=== PATIENT | male | born 1940 | race Caucasian/White ===

== ENCOUNTER 2018-01-09 19:21 | Emergency (ER) | payer OTHER ==
[~2018-01-09] VITALS: Ht 175.3 cm; Wt 81.0 kg
[~2018-01-09 19:21] MED LIST: ALEV220T14 PO; ALPH0.1S EACH EYE; AMLO10TA2 PO; ASPI81TA23 PO; HYDR12.57 PO; LIPI20TA PO; LISI40TA PO; OMEP20TA93 PO; TIMO0.5S30 EACH EYE
[2018-01-09 19:42] VITALS: BP 146/77; PULSE 79; RESP 16; TEMP 98.5; O2SAT 95
[2018-01-09] MEDS ORDERED: SODIUM CHLORIDE 0.9% FLUSH 10 ML FLUSH IVF PRN (20:30)
--- NOTE | 2018-01-09 20:31 | PD ---
HPI Chief Complaint: Syncope/Near-Syncope Time Seen by Provider: 20:29 Travel History International Travel<30 days: No Contact w/Intl Traveler<30days: No Traveled to known affect area: No History of Present Illness HPI 77-year-old male with history of CAD, hypertension, presents emergency department for evaluation of a syncopal episode. Patient had an unwitnessed syncopal episode 2 days ago. He does not believe he hit his head but he does not know. He has no obvious head trauma. He went to his primary care providers yesterday who did an EKG and a minimal workup and advised that he had a "heart block" the says. Patient denies any chest pain or tightness. He states since the incident he has felt lightheaded and like he was going to pass out again, however he has not. The episodes became more frequent today. Denies any chest pain or shortness of breath. No other focal deficits or weakness. Patient has no other symptoms to report. Patient did recently stop taking his aspirin due to upcoming biopsy scheduled for pulmonary nodule. [facility] Past Medical History Cardiovascular Problems: Yes (HTN, heart block,) High Cholesterol: Yes Diminished Hearing: No Hypertension: Yes Past Surgical History Surgical History: No Previous Surgery Social History Alcohol Use: Yes (DAILY BEER, MORE ON WEEK END) Tobacco Use: No Substance Use: No Allergies-Medications (Allergen,Severity, Reaction): Coded Allergies: penicillin G (Verified Allergy, Severe, THROAT CLOSES, 09/15/17) Reported Meds & Prescriptions Reported Meds & Active Scripts Active Alphagan P Opth Drops (Brimonidine Tartrate) 0.1% Soln 1 Drop EACH EYE BID Reported Timolol Opth Drops 0.5 % Soln 1 Drop EACH EYE BID Aleve Arthritis (Naproxen Sodium) 220 Mg Tab 220 Mg PO BID Aspirin EC (Aspirin) 81 Mg Tabdr 81 Mg PO TWICE A WEEK Omeprazole 20 Mg Tab 20 Mg PO BID Hydrochlorothiazide 12.5 Mg Cap 12.5 Mg PO DAILY Lipitor (Atorvastatin Calcium) 20 Mg Tab 20 Mg PO HS Lisinopril 40 Mg Tab 40 Mg PO DAILY Amlodipine (Amlodipine Besylate) Unknown Strength Tab Unknown Dose PO DAILY Review of Systems Except as stated in HPI: all other systems reviewed are Neg Physical Exam Narrative GENERAL: Well-nourished male patient in no acute distress SKIN: Focused skin assessment warm/dry. HEAD: Atraumatic. Normocephalic. EYES: Pupils equal and round. No scleral icterus. No injection or drainage. ENT: No nasal bleeding or discharge. Mucous membranes pink and moist. NECK: Trachea midline. No JVD. CARDIOVASCULAR: Regular rate and rhythm. No murmur appreciated. RESPIRATORY: No accessory muscle use. Clear to auscultation. Breath sounds equal bilaterally. GASTROINTESTINAL: Abdomen soft, non-tender, nondistended. Hepatic and splenic margins not palpable. MUSCULOSKELETAL: No obvious deformities. No clubbing. No cyanosis. No edema. NEUROLOGICAL: Awake and alert. No obvious cranial nerve deficits. Motor grossly within normal limits. Normal speech. PSYCHIATRIC: Appropriate mood and affect; insight and judgment normal. Data Data Last Documented VS Vital Signs Date Time Temp Pulse Resp B/P (MAP) Pulse Ox O2 Delivery O2 Flow Rate FiO2 01/09/18 19:42 98.5 79 16 146/77 (100) 95 Orders Orders Electrocardiogram (01/09/18 20:30) Complete Blood Count With Diff (01/09/18 20:30) Comprehensive Metabolic Panel (01/09/18 20:30) Magnesium (Mg) (01/09/18 20:30) Ckmb (Isoenzyme) Profile (01/09/18 20:30) Troponin I (01/09/18 20:30) Act Partial Throm Time (Ptt) (01/09/18 20:30) Prothrombin Time / Inr (Pt) (01/09/18 20:30) Urinalysis - C+S If Indicated (01/09/18 20:30) Chest, Single Ap (01/09/18 20:30) Ct Brain W/O Iv Contrast(Rout) (01/09/18 20:30) Ecg Monitoring (01/09/18 20:30) Iv Access Insert/Monitor (01/09/18 20:30) Oximetry (01/09/18 20:30) Sodium Chloride 0.9% Flush (Ns Flush) (01/09/18 20:30) Labs Laboratory Tests Test 01/09/18 20:40 01/09/18 20:52 01/09/18 21:15 White Blood Count 9.4 TH/MM3 Red Blood Count 4.35 MIL/MM3 Hemoglobin 12.6 GM/DL Hematocrit 37.2 % Mean Corpuscular Volume 85.5 FL Mean Corpuscular Hemoglobin 29.0 PG Mean Corpuscular Hemoglobin Concent 33.9 % Red Cell Distribution Width 14.4 % Platelet Count 265 TH/MM3 Mean Platelet Volume 9.9 FL Neutrophils (%) (Auto) 63.6 % Lymphocytes (%) (Auto) 19.1 % Monocytes (%) (Auto) 11.8 % Eosinophils (%) (Auto) 4.3 % Basophils (%) (Auto) 1.2 % Neutrophils # (Auto) 6.0 TH/MM3 Lymphocytes # (Auto) 1.8 TH/MM3 Monocytes # (Auto) 1.1 TH/MM3 Eosinophils # (Auto) 0.4 TH/MM3 Basophils # (Auto) 0.1 TH/MM3 CBC Comment DIFF FINAL Differential Comment Blood Urea Nitrogen 20 MG/DL Creatinine 1.16 MG/DL Random Glucose 120 MG/DL Total Protein 7.5 GM/DL Albumin 3.7 GM/DL Calcium Level 8.9 MG/DL Magnesium Level 2.3 MG/DL Alkaline Phosphatase 57 U/L Aspartate Amino Transf (AST/SGOT) 22 U/L Alanine Aminotransferase (ALT/SGPT) 22 U/L Total Bilirubin 0.4 MG/DL Sodium Level 140 MEQ/L Potassium Level 3.8 MEQ/L Chloride Level 106 MEQ/L Carbon Dioxide Level 26.6 MEQ/L Anion Gap 7 MEQ/L Estimat Glomerular Filtration Rate 61 ML/MIN Total Creatine Kinase 91 U/L Troponin I LESS THAN 0.02 NG/ML Urine Color LIGHT-YELLOW Urine Turbidity CLEAR Urine pH 5.5 Urine Specific [place] 1.021 Urine Protein NEG mg/dL Urine Glucose (UA) NEG mg/dL Urine Ketones NEG mg/dL Urine Occult Blood NEG Urine Nitrite NEG Urine Bilirubin NEG Urine Urobilinogen LESS THAN 2.0 MG/DL Urine Leukocyte Esterase NEG Urine RBC LESS THAN 1 /hpf Urine Squamous Epithelial Cells <1 /hpf Microscopic Urinalysis Comment CULT NOT INDICATED Prothrombin Time 11.1 SEC Prothromb Time International Ratio 1.1 RATIO Activated Partial Thromboplast Time 24.7 SEC [facility] Medical Decision Making Medical Screen Exam Complete: Yes Emergency Medical Condition: Yes Medical Record Reviewed: Yes Differential Diagnosis Syncope versus near syncope versus arrhythmia versus electrolyte abnormality versus intracranial hemorrhage Narrative Course 77-year-old male presents emergency department for evaluation following a syncopal episode and multiple near syncopal episodes. Patient appears without distress. Vital signs are stable. He has no focal deficits weakness. Workup is initiated. Patient is signed out to my attending physician Dr. Ruiz who will disposition him appropriately. Condition: Stable MelonyJazz MARES January 09, 2018 20:31
[2018-01-09 20:57] LABS: BASOPHIL # 0.1 TH/MM3 (0-0.2); BASOPHIL % 1.2 % (0.0-2.0); EOSINOPHIL # 0.4 TH/MM3 (0-0.4); EOSINOPHIL % 4.3 % (0.0-4.0); HEMATOCRIT 37.2 % (39.0-51.0); HEMOGLOBIN 12.6 GM/DL (13.0-17.0); LYMPH % 19.1 % (9.0-44.0); LYMPHOCYTE # 1.8 TH/MM3 (1.0-4.8); MEAN CELL VOLUME 85.5 FL (80.0-100.0); MEAN CORPUSCULAR HGB CONC 33.9 % (32.0-36.0); MEAN PLATELET VOLUME 9.9 FL (7.0-11.0); MONO % 11.8 % (0.0-8.0); MONOCYTE # 1.1 TH/MM3 (0-0.9); NEUT % 63.6 % (16.0-70.0); PLATELET COUNT 265 TH/MM3 (150-450); RED BLOOD COUNT 4.35 MIL/MM3 (4.50-5.90); RED CELL DISTRIBUTION WIDTH 14.4 % (11.6-17.2); WHITE BLOOD COUNT 9.4 TH/MM3 (4.0-11.0)
[2018-01-09 21:12] LABS: ALT (GPT) 22 U/L (12-78)
[2018-01-09 21:13] LABS: ALBUMIN 3.7 GM/DL (3.4-5.0); AST (GOT) 22 U/L (15-37); BICARBONATE 26.6 MEQ/L (21.0-32.0); BLOOD UREA NITROGEN 20 MG/DL (7-18); CALCIUM 8.9 MG/DL (8.5-10.1); CHLORIDE 106 MEQ/L (98-107); CREATININE 1.16 MG/DL (0.60-1.30); GLOMERULAR FILTRATION RATE 61 ML/MIN (>89); GLUCOSE,RANDOM 120 MG/DL (74-106); MAGNESIUM 2.3 MG/DL (1.5-2.5); SODIUM (NA) 140 MEQ/L (136-145)
[2018-01-09 21:15] LABS: BILIRUBIN, URINE NEG (NEG); BLOOD, URINE NEG (NEG); GLUCOSE,URINE NEG (NEG); KETONE, URINE NEG (NEG); NITRITE,URINE NEG (NEG); PH, URINE 5.5 (5.0-8.5); SQUAMOUS EPITHELIAL CELL URINE <1 /hpf (0-5); URINE COLOR LIGHT-YELLOW (YELLW/STRAW); URINE LEUKOCYTE ESTERASE NEG (NEG)
[2018-01-09 21:16] LABS: ALKALINE PHOSPHATASE 57 U/L (45-117); TOTAL BILIRUBIN ADULT 0.4 MG/DL (0.2-1.0); TOTAL PROTEIN 7.5 GM/DL (6.4-8.2); TROPONIN I LESS THAN 0.02 NG/ML (0.02-0.05)
--- NOTE | 2018-01-09 21:44 | RADRPT ---
EXAM DATE/TIME: 01/09/2018 21:20 [facility] COMPARISON: No previous studies available for comparison. INDICATIONS : Palpitations. Dizziness with frequent falls. MEDICAL HISTORY : Hypercholesterolemia. Hypertension SURGICAL HISTORY : None. ENCOUNTER: Initial ACUITY: 3 days PAIN SCORE: 0/10 LOCATION: Bilateral chest FINDINGS: Tiny granuloma is noted within the right upper lung field. The heart is normal. The pulmonary vascula r pattern is normal. Linear density is noted within the left upper lung field consistent with possibl e atelectasis or scarring. No focal infiltrate is noted. CONCLUSION: Linear density within the left upper lung field consistent with possible atelectasis or scarring. Tin y granuloma within the right upper lung field. Gael Baker MD on January 09, 2018 at 21:40 Board Certified Radiologist. This report was verified electronically.
[2018-01-09 21:57] LABS: INTERNATIONAL NORMALIZED RATIO 1.1 RATIO; PROTHROMBIN TIME - PATIENT 11.1 SEC (9.8-11.6)
--- NOTE | 2018-01-09 23:46 | RADRPT ---
EXAM DATE/TIME: 01/09/2018 22:56 [facility] COMPARISON: No previous studies available for comparison. INDICATIONS : Trauma; fall. Patient complains of chronic dizziness. RADIATION DOSE: 56.35 CTDIvol (mGy) MEDICAL HISTORY : Hypertension. Hypercholesterolemia. Daily ETOH SURGICAL HISTORY : None. ENCOUNTER: Initial ACUITY: 1 day PAIN SCALE: 0/10 LOCATION: cranial TECHNIQUE: Multiple contiguous axial images were obtained of the head. Using automated exposure control and adj ustment of the mA and/or kV according to patient size, radiation dose was kept as low as reasonably a chievable to obtain optimal diagnostic quality images. DICOM format image data is available electro nically for review and comparison. FINDINGS: There is encephalomalacia in the high convexity right parietal region. A small focus of cortical ence phalomalacia is present in the mid convexity right parieto-occipital region. There is no evidence of mass or hemorrhage. There is nothing to suggest acute infarction. Ventricles are symmetric and normal . The calvarium is intact. CONCLUSION: Old right hemispheric strokes. No acute injury Reddy Pena MD on January 09, 2018 at 23:42 Board Certified Radiologist. This report was verified electronically.
--- NOTE | 2018-01-10 00:17 | PD ---
Physical Exam Narrative Patient was seen by me and my wellness assistant. Data Data Last Documented VS Vital Signs Date Time Temp Pulse Resp B/P (MAP) Pulse Ox O2 Delivery O2 Flow Rate FiO2 01/09/18 19:42 98.5 79 16 146/77 (100) 95 Orders Orders Electrocardiogram (01/09/18 20:30) Complete Blood Count With Diff (01/09/18 20:30) Comprehensive Metabolic Panel (01/09/18 20:30) Magnesium (Mg) (01/09/18 20:30) Ckmb (Isoenzyme) Profile (01/09/18 20:30) Troponin I (01/09/18 20:30) Act Partial Throm Time (Ptt) (01/09/18 20:30) Prothrombin Time / Inr (Pt) (01/09/18 20:30) Urinalysis - C+S If Indicated (01/09/18 20:30) Chest, Single Ap (01/09/18 20:30) Ct Brain W/O Iv Contrast(Rout) (01/09/18 20:30) Ecg Monitoring (01/09/18 20:30) Iv Access Insert/Monitor (01/09/18 20:30) Oximetry (01/09/18 20:30) Sodium Chloride 0.9% Flush (Ns Flush) (01/09/18 20:30) Labs Laboratory Tests Test 01/09/18 20:40 01/09/18 20:52 01/09/18 21:15 White Blood Count 9.4 TH/MM3 Red Blood Count 4.35 MIL/MM3 Hemoglobin 12.6 GM/DL Hematocrit 37.2 % Mean Corpuscular Volume 85.5 FL Mean Corpuscular Hemoglobin 29.0 PG Mean Corpuscular Hemoglobin Concent 33.9 % Red Cell Distribution Width 14.4 % Platelet Count 265 TH/MM3 Mean Platelet Volume 9.9 FL Neutrophils (%) (Auto) 63.6 % Lymphocytes (%) (Auto) 19.1 % Monocytes (%) (Auto) 11.8 % Eosinophils (%) (Auto) 4.3 % Basophils (%) (Auto) 1.2 % Neutrophils # (Auto) 6.0 TH/MM3 Lymphocytes # (Auto) 1.8 TH/MM3 Monocytes # (Auto) 1.1 TH/MM3 Eosinophils # (Auto) 0.4 TH/MM3 Basophils # (Auto) 0.1 TH/MM3 CBC Comment DIFF FINAL Differential Comment Blood Urea Nitrogen 20 MG/DL Creatinine 1.16 MG/DL Random Glucose 120 MG/DL Total Protein 7.5 GM/DL Albumin 3.7 GM/DL Calcium Level 8.9 MG/DL Magnesium Level 2.3 MG/DL Alkaline Phosphatase 57 U/L Aspartate Amino Transf (AST/SGOT) 22 U/L Alanine Aminotransferase (ALT/SGPT) 22 U/L Total Bilirubin 0.4 MG/DL Sodium Level 140 MEQ/L Potassium Level 3.8 MEQ/L Chloride Level 106 MEQ/L Carbon Dioxide Level 26.6 MEQ/L Anion Gap 7 MEQ/L Estimat Glomerular Filtration Rate 61 ML/MIN Total Creatine Kinase 91 U/L Troponin I LESS THAN 0.02 NG/ML Urine Color LIGHT-YELLOW Urine Turbidity CLEAR Urine pH 5.5 Urine Specific [place] 1.021 Urine Protein NEG mg/dL Urine Glucose (UA) NEG mg/dL Urine Ketones NEG mg/dL Urine Occult Blood NEG Urine Nitrite NEG Urine Bilirubin NEG Urine Urobilinogen LESS THAN 2.0 MG/DL Urine Leukocyte Esterase NEG Urine RBC LESS THAN 1 /hpf Urine Squamous Epithelial Cells <1 /hpf Microscopic Urinalysis Comment CULT NOT INDICATED Prothrombin Time 11.1 SEC Prothromb Time International Ratio 1.1 RATIO Activated Partial Thromboplast Time 24.7 SEC [facility] Medical Record Reviewed: Yes Supervised Visit with KARINA: Yes Interpretation(s) Last Impressions Chest X-Ray 01/09/182029 Signed Impressions: Service Date/Time: Tuesday, January 09, 2018 21:20 - CONCLUSION: Linear density within the left upper lung field consistent with possible atelectasis or scarring. Tiny granuloma within the right upper lung field. Gael Baker MD 12:[address] scan of brain showed no acute process. Old CVA. CBC within normal limits. CMP within normal limits. BUN 20. GFR 61. Cardiac enzymes are normal. UA is negative. Diagnosis Primary Impression: Dizziness Patient Instructions: General Instructions Additional Instruction: Follow-up with personal physician. Return if worse. Med/Other Pt SpecificInfo: No Change to Meds Disposition: 01 DISCHARGE HOME Condition: Stable Eligio Ruiz MD January 10, 2018 00:17
--- NOTE | 2018-01-10 12:09 | EKG ---
Date Performed: 01/09/2018 Time Performed: 20:43:40 PTAGE: 77 years EKG: Sinus rhythm WITH FIRST DEGREE AV BLOCK WITH OCCASIONAL VENTRICULAR PREMATURE COMPLEXES INCOMPLETE RIGHT BUNDLE B RANCH BLOCK ABNORMAL ECG NO PREVIOUS TRACING DOCTOR: Adrian Munson Interpretating Date/Time 01/10/2018 12:07:20
== END 2018-01-10 00:40 | disposition home or self-care (01) ==
LOC: NEPE 19:21
DX: R42 Dizziness and giddiness (principal); I44.0 Atrioventricular block, first degree; I45.10 Unspecified right bundle-branch block; R94.31 Abnormal electrocardiogram [ECG] [EKG]; I25.10 Atherosclerotic heart disease of native coronary artery without angina pectoris; I10 Essential (primary) hypertension; E78.00 Pure hypercholesterolemia, unspecified; Z79.899 Other long term (current) drug therapy; Z86.73 Personal history of transient ischemic attack (TIA), and cerebral infarction without residual deficits
CPT/HCPCS: 70450; 71045; 80053; 81001; 82550; 83735; 84484; 85025; 85610; 85730; 93005; 99285

== ENCOUNTER → 2018-02-22 | Outpatient (CLI) | payer OTHER ==
[~2018-02-22] MED LIST changes: +BACL10TA PO; +HYDR25TA5 PO; +MECL-62 PO; +OCUVTAB4 PO; +VITA1000 PO
[2018-02-22 11:09] LABS: AUTOMATED NEUTROPHIL # 7.1 TH/MM3 (1.8-7.7); BASOPHIL # 0.1 TH/MM3 (0-0.2); BASOPHIL % 0.7 % (0.0-2.0); EOSINOPHIL # 0.4 TH/MM3 (0-0.4); EOSINOPHIL % 3.5 % (0.0-4.0); HEMATOCRIT 36.3 % (39.0-51.0); HEMOGLOBIN 12.3 GM/DL (13.0-17.0); LYMPH % 15.4 % (9.0-44.0); LYMPHOCYTE # 1.5 TH/MM3 (1.0-4.8); MEAN CELL VOLUME 84.7 FL (80.0-100.0); MEAN CORPUSCULAR HEMOGLOBIN 28.7 PG (27.0-34.0); MEAN CORPUSCULAR HGB CONC 33.9 % (32.0-36.0); MONO % 10.2 % (0.0-8.0); NEUT % 70.2 % (16.0-70.0); PLATELET COUNT 281 TH/MM3 (150-450); RED BLOOD COUNT 4.29 MIL/MM3 (4.50-5.90); RED CELL DISTRIBUTION WIDTH 13.8 % (11.6-17.2); WHITE BLOOD COUNT 10.1 TH/MM3 (4.0-11.0)
[2018-02-22 11:14] LABS: BILIRUBIN, URINE NEG (NEG); BLOOD, URINE NEG (NEG); GLUCOSE,URINE NEG (NEG); KETONE, URINE NEG (NEG); MUCUS URINE FEW /lpf (OCC); NITRITE,URINE NEG (NEG); URINE COLOR YELLOW (YELLW/STRAW); URINE LEUKOCYTE ESTERASE NEG (NEG)
[2018-02-22 11:19] LABS: INTERNATIONAL NORMALIZED RATIO 1.1 RATIO; PROTHROMBIN TIME - PATIENT 10.9 SEC (9.8-11.6)
[2018-02-22 11:31] LABS: BICARBONATE 28.2 MEQ/L (21.0-32.0); CALCIUM 8.6 MG/DL (8.5-10.1); CREATININE 1.06 MG/DL (0.60-1.30)
--- NOTE | 2018-02-22 12:00 | RADRPT ---
EXAM DATE: 02/22/2018 11:54 AM EDT AGE/SEX: 77 years / Male INDICATIONS: Evaluate for pneumothorax, pneumonia, and communicable disease. Pre op for thoracotomy. CLINICAL DATA: This is the patient's initial encounter. Patient reports that signs and symptoms have been present for 1 day and indicates a pain score of 0/10. MEDICAL/SURGICAL HISTORY: Hypertension. None. COMPARISON: [facility] [place], [place]/09/[place]. . FINDINGS: The heart size is normal. There appear to be calcific granulomas in the lateral right upper lung. Sabino cified lymph nodes are seen in the right hilar region. There is a nonspecific small linear densities seen in the lateral left upper lung. This is unchanged from the prior chest x-ray. No new area of con solidation is seen. The costophrenic angles are clear. CONCLUSION: The chest x-ray with of intracranial is exposure on the right side and a focal density in the lateral left upper lung. This is unchanged when compared to the prior chest x-ray. Patient has had a CT exam ination performed on 12/31/2017. Electronically signed by: Reddy Borges MD 02/22/2018 11:59 AM EDT
--- NOTE | 2018-02-22 22:52 | EKG ---
Date Performed: 02/22/2018 Time Performed: 10:59:31 PTAGE: 77 years EKG: Sinus rhythm WITH FIRST DEGREE AV BLOCK INCOMPLETE RIGHT BUNDLE BRANCH BLOCK ABNORMAL ECG NO PREVIOUS TRACING DOCTOR: Rudi Galan Interpretating Date/Time 02/22/2018 22:50:36
== END ==
LOC: CPRE 10:19
PROVIDERS: ATTEND Thoracic Surgery (Cardiothoracic Vascular Surgery)
DX: Z01.810 Encounter for preprocedural cardiovascular examination (principal); Z01.811 Encounter for preprocedural respiratory examination; Z01.812 Encounter for preprocedural laboratory examination; C34.12 Malignant neoplasm of upper lobe, left bronchus or lung; R94.31 Abnormal electrocardiogram [ECG] [EKG]
CPT/HCPCS: 36415; 71046; 80048; 81001; 85025; 85610; 85730; 93005

== ENCOUNTER 2018-02-25 05:49 | Inpatient (IN) ==
[2018-03-07] MEDS ORDERED: niCARdipine Inj 25 MG in Sodium Chlor 0.9% Inj 240 ML IV.CONT PRN ×2
[2018-03-07] MEDS ORDERED: Magnesium Sulfate Inj 2 GM in Sodium Chlor 0.9% Inj 96 ML IV.SIG PRN ×2
[2018-03-07] MEDS ORDERED: Potassium Chlor 40 mEq Premix 40 MEQ/100 ML PIGGYBACK IV.SIG PRN ×2
[2018-03-07] MEDS ORDERED: Magnesium Oxide 400 MG Tablet PO PRN
[2018-03-07] MEDS ORDERED: Sodium Phosphate Inj 30 MMOL in Sodium Chlor 0.9% Inj 250 ML IV.SIG PRN ×2
[2018-03-07] MEDS ORDERED: Potassium Phosphate 500 MG Soluble Tablet PO PRN ×2
[2018-03-07] MEDS ORDERED: Potassium Chlor 20 mEq Premix 20 MEQ/100 ML PIGGYBACK IV.SIG PRN ×2
[2018-03-07] MEDS ORDERED: Potassium Phosphate Inj 30 MMOL in Sodium Chlor 0.9% Inj 250 ML IV.SIG PRN ×2
[2018-03-07] MEDS ORDERED: Bisacodyl 10 MG Supp RECTAL PRN
[2018-03-07] MEDS ORDERED: Potassium Chloride 25 MEQ Effervescent Tablet PO PRN
[2018-03-07] MEDS ORDERED: Labetalol HCl Inj 100 MG/20 ML Vial IV.PUSH PRN ×2
[2018-03-07] MEDS ORDERED: Dextrose 50% in Water 50 ML Vial IV.PUSH PRN
[2018-03-07] MEDS ORDERED: Magnesium Sulfate Inj 4 GM in Sodium Chlor 0.9% Inj 92 ML IV.SIG PRN ×2
[2018-03-07] MEDS: Oral Hygiene Kit OROPHARYNG SCH ×4 (02:00→15:44)
[2018-03-07] MEDS: Chlorhexidine 0.12% Oral Kit 15 ML UDC SWISH-SPIT SCH ×2 (08:19→20:53)
[2018-03-07] MEDS: BRIMONIDINE 0.1% EACH EYE SCH ×2 (08:20→20:54)
[2018-03-07] MEDS: OPTH EACH EYE SCH ×2 (08:20→20:54)
[2018-03-07] MEDS: Artificial Tears Opth Oint 3.5 GM Tube EACH EYE SCH ×2 (08:20→20:52)
[2018-03-07] MEDS: Polyethylene Glycol 3350 17 GM Packet NG/OG SCH ×2 (08:20→20:52)
[2018-03-07] MEDS: Docusate Sodium Liq 100 MG/10 ML UDC PO SCH ×2 (08:20→20:50)
[2018-03-07] MEDS: Sennosides Liq 8.8 MG/5 ML UDC PO SCH ×2 (08:21→20:51)
[2018-03-07] MEDS: Timolol 0.5% Drops 5 ML Bottle EACH EYE SCH ×2 (08:21→20:54)
[2018-03-07] MEDS ORDERED: Senna/Docusate Sodium 8.6/50 MG Tablet PO SCH (09:00)
[2018-03-07] MEDS: Heparin Drip 25,000 UNIT/250 ML BAG IV.CONT PRN (09:46)
--- NOTE | 2018-03-07 13:23 | P.PNCC ---
Subjective Subjective Remarks/Hospital Course: 02/25: This is a 77-year-old male. Date of admission 02/25/2018. Date of consultation 02/25/2018. 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 During the workup patient was noted to have carotid artery stenosis by Dr. Donahue. Patient has known history of left upper lobe lung cancer/invasive squamous cell carcinoma type. Today patient with a left posterolateral muscle-sparing thoracotomy with a left upper lobe lobectomy and mediastinal lymph node dissection by Dr. Holman. 1100 cc crystalloid. 20 cc EBL. 250 cc urine output. Patient received 1 g of vancomycin during this procedure. Patient also had on preoperative studies found to have asymptomatic severe carotid stenosis. Was evaluated Dr. Mcneal today. Recommend follow-up in 1 month. At about 11:00 pm on 02/25, patient had acute onset of a fascia, left greater than right extremity weakness and facial droop. Patient was aphasic and dysarthric. He was intermittently apneic. Was able to follow commands with right upper extremity and lower extremity greater than left lower extremity and upper extremity. A stroke alert was called. CT brain revealed old right parieto-occipital strokes but no acute findings. CT angiogram showed no obvious occlusion. Discussed with Dr. Herron who recommended aspirin per rectum with neurology consult in a.m. along with MRI brain. Dr. Flynn is made aware these findings. Due to his tenuous respiratory status patient was electively intubated using 20 mg etomidate and 50 mg rocuronium. 02/26: remains sedated, orally intubated on mechanical ventilation. 02/27: Remains drowsy, apneic episodes yesterday with CPAP trials. Remains orally intubated on mechanical ventilation. MRI brain revealed right midbrain as well as left medial cerebellar infarcts. CTA brain with right critical carotid artery stenosis and nonvisualized left vertebral artery. Patient appears to have had a posterior circulation stroke probably embolic from left vertebral artery. 02/28: Resting comfortably in bed in no acute distress. T-max 99.1. Arousable and attempts to follow commands with right upper and lower extremities. No bowel movement since admission. Tube feeds currently at 30 cc an hour SUBJECTIVE: 03/01: T-max 103. Currently 100.9. Potassium chloride powder 60 mEq 1 this a.m. Being replaced. Tube feeds at 20 cc an hour. No bowel movement. Neurological exam unchanged. 03/02: patient remains unresponsive with minimal withdrawal to pain. Tmax 102, WBC increased to 19.7. CXR probable LLL pneumonia. CT head evolving brainstem and cerebellar stroke. Encephalopathy may be metabolic, EEG ordered to rule out subclinical seizures. Will start Azactam, Vanc, Flagyl to cover for severe sepsis/probable pneumonia 03/03: Patient remains intubated off sedation T-max 101.7 sputum culture with GNR WBC count is 20.5. Patient developing diarrhea will check C. difficile also. Mental status is slightly improved weakly follows commands on right upper and lower extremities. EEG moderate encephalopathy no seizures 03/04: Remains off all sedation. No spontaneous eye opening but weakly follows commands on right upper and lower extremity, no spontaneous movements on the left. Sputum culture growing Klebsiella and staph aureus. tells me that patient has previously indicated no prolonged life support. She is of the opinion that patient would not have wanted tracheostomy and long-term mcfp placement 03/05: Patient appears more lethargic today not following commands remains off all sedation no fever reported. Chest x-ray shows persistent left lower lobe infiltrate, tiny left apical pneumothorax. Sputum growing pansensitive Klebsiella and staph aureus on adequate coverage. Will consolidate antibiotic to Levaquin 03/06: Remains intubated off all sedation opens eyes to stimulation. Follow commands weakly on right upper and lower extremity and withdraws on the left side. No significant improvement in alertness 03/07: Remains intubated and remains encephalopathic. Off all sedation. Did not follow commands at this moment but previously was following. Objective Vital Signs / I&O: Vital Signs 03/07/18 02:00 03/07/18 04:00 03/07/18 04:07 Temperature 101.5 F H Pulse Rate 72 77 77 Respiratory Rate 20 20 Blood Pressure 138/65 Pulse Oximetry 97 97 03/07/18 08:00 Temperature 99.5 F Pulse Rate 73 Respiratory Rate 20 Blood Pressure 150/71 H Pulse Oximetry 98 Result Diagrams: 03/06/18 04:22 03/06/18 04:22 Other Results: GENERAL: 77-year-old male currently orotracheally intubated, off all sedation SKIN: Warm and dry. No rash HEAD: Atraumatic. Normocephalic. EYES: Pupils equal and round about 3 mm bilaterally and reactive. No scleral icterus. No injection or drainage. ENT: No nasal bleeding or discharge. Orotracheally intubated. +ET tube secretions NECK: Trachea midline. No JVD. Systolic right /6 carotid bruit CARDIOVASCULAR: Regular rate and rhythm. S1, S2. No S4. RESPIRATORY: Few rhonchi at the bases. PRVC/AC, now on CPAP 04/11 GASTROINTESTINAL: Abdomen soft, non-tender, nondistended. Hepatic and splenic margins not palpable. MUSCULOSKELETAL: Extremities without significant peripheral edema. No obvious deformities. NEUROLOGICAL: No spontaneous eye opening, partially opens eyes to stimulation. 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 No acute findings CT angiogram brain 02/25 revealed no acute occlusions. CTA neck with occluded left vertebral artery. Carotid ultrasound with critical right carotid artery stenosis MRI of brain with right midbrain infarct and medial left cerebellar infarct CT brain repeat 03/02- brainstem and cerebellar stroke Encephalopathy most likely metabolic. EEG moderate encephalopathy. Neurology Dr. Oseguera. Continue ASA. Due to critical right carotid artery stenosis radiology recommends anticoagulation which was discussed with Dr. Holman who was okay with starting heparin. Heparin gtt stroke protocol started on 02/26. Repeat head CT ordered for 02/27, 03/02 revealed stable right brainstem and left cerebellar infarct Continue timolol 0.5% 1 drop each eye twice daily and brimonidine drip 0.1% 1 drop each eye twice daily. Baclofen 10 mg 3 times daily-hold Keep head of bed at 30. Tylenol for fever EEG 03/01 revealed no epileptic activity. Mild encephalopathic. CV: Essential hypertension Hyperlipidemia Right carotid artery stenosis Allow for permissive hypertension. Amlodipine 10 mg daily, lisinopril 40 mg daily on hold As needed labetalol and nicardipine drip to keep systolic blood pressure less than 220 2D echocardiogram per CVA protocol revealed EF around 50 to 55%. There is a small pericardial effusion present. . Dr. Mcneal vascular surgery consult initial recommendations follow-up 1 month Continue IV Heparin Resp: Acute respiratory failure Postop left posterior lateral muscle-sparing thoracotomy with JAYLENE lobectomy and mediastinal lymph node dissection secondary to squamous cell carcinoma the lung by Dr. Holman COPD? 4 pack years tobacco use quit 40 years ago Pneumonia Tiny right apical pneumothorax PRVC 14/525/09/11/, PSV 10/5-30%. Daily spontaneous breathing trials but mental status will not permit extubation Ventilator bundle. Albuterol aerosols every 4 hours with albuterol aerosols every 2 hours as needed dyspnea Chest tube removed 03/01 by CTS indicates patient will not want trach and PEG, but family wants to give about 14 days to see whether the patient improves Follow-up chest x-ray in a.m., no indication for chest tube at this time GI: Gastroesophageal reflux disease on omeprazole 20 mg daily at home History of EGD with dilatation? Constipation Hypoalbuminemia Tube feeds with Jevity 1.5 Pantoprazole switch to lansoprazole for GI prophylaxis Docusate sodium 100 mg twice daily, senna liquid 8.8 mg twice daily, polyethylene glycol 17 g twice daily and lactulose 30 cc 4 times daily KUB showed mild distended colon C. difficile-negative Endo: Sliding scale insulin with Accu-Cheks every 6 hours/low regimen of NovoLog to maintain euglycemia Renal: Creatinine currently within normal limits Monitor urine output, Accurate I's and O's Rodriguez catheter will be placed for accurate I's and O's in a critically ill patient Heme: Leukocytosis Normocytic anemia Monitor CBC daily. Follow trends ID: Severe sepsis/high fever Healthcare associated pneumonia (Klebsiella/Staph aureus) Continue Levaquin 750 mg IV every 24 hours Follow-up on blood urine and sputum cultures-Klebsiella staph aureus Monitor for signs and symptomatology infection C. difficile negative Access -Utilize peripheral IV. Central line if indicated Prophylaxis -GI -pantoprazole -DVT -SCDs/pharmacological prophylaxis provided by heparin drip Level 2 Patient remains critically ill septic, encephalopathy mental status will not permit extubation. indicates patient has a living will and he would not want long-term mcfp/rehab placement, or trach and PEG. Palliative care following DNR now. Also indicated that they want to wait a total of 14 days at least to see whether the patient is improving
[2018-03-08] MEDS: Oral Hygiene Kit OROPHARYNG SCH ×4 (00:09→20:54)
[2018-03-08] MEDS: Heparin Drip 25,000 UNIT/250 ML BAG IV.CONT PRN ×2 (02:22→18:28)
--- NOTE | 2018-03-08 03:18 | XR ---
EXAM DATE: 03/08/2018 3:00 AM EDT AGE/SEX: 77 years / Male INDICATIONS: Respiratory disease. CLINICAL DATA: This is the patient's subsequent encounter. Patient reports that signs and symptoms h ave been present for 1 week and indicates a pain score of Nonresponsive. MEDICAL/SURGICAL HISTORY: Hypertension. None. COMPARISON: [facility] [place], CHEST SINGLE AP, 03/06/2018. . FINDINGS: Mild patient rotation towards the left. ET tube tip well above the shelbie. Gastric tube traverses the [id number]. There are persistent patchy areas of consolidation in the left lower lung. The right lung is clear. CONCLUSION: Persistent partial consolidation left lower lung. Electronically signed by: Francisco Donis MD 03/08/2018 3:17 AM EDT
[2018-03-08 05:03] LABS: Hematocrit 29.2 % (39.0-51.0); Hemoglobin 9.6 gm/dL (13.0-17.0); Mean Corpuscular HGB Conc 33.1 % (32.0-36.0); Mean Corpuscular Volume 84.8 fL (80.0-100.0); Mean Platelet Volume 9.4 fL (7.0-11.0); Platelet Count 370 th/mm3 (150-450); Red Blood Count 3.44 mil/mm3 (4.50-5.90); Red Cell Distribution Width 14.4 % (11.6-17.2); White Blood Count 13.2 th/mm3 (4.0-11.0)
[2018-03-08 05:37] LABS: Alanine Aminotransferase 94 U/L (12-78); Albumin 1.5 g/dL (3.4-5.0); Alkaline Phosphatase 127 U/L (45-117); Anion Gap 8 meq/L (5-15); Aspartate Aminotransferase 98 U/L (15-37); Blood Urea Nitrogen 16 mg/dL (7-18); Calcium 8.1 mg/dL (8.5-10.1); Chloride 109 meq/L (98-107); Glomerular Filtration Rate 86 mL/min (>89); Glucose,Random 127 mg/dL (74-106); Potassium 3.3 meq/L (3.5-5.1); Sodium 143 meq/L (136-145); Total Protein 6.6 g/dL (6.4-8.2)
--- NOTE | 2018-03-08 08:46 | P.PNCC ---
Subjective Subjective Remarks/Hospital Course: 02/25: This is a 77-year-old male. Date of admission 02/25/2018. Date of consultation 02/25/2018. 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 During the workup patient was noted to have carotid artery stenosis by Dr. Donahue. Patient has known history of left upper lobe lung cancer/invasive squamous cell carcinoma type. Today patient with a left posterolateral muscle-sparing thoracotomy with a left upper lobe lobectomy and mediastinal lymph node dissection by Dr. Holman. 1100 cc crystalloid. 20 cc EBL. 250 cc urine output. Patient received 1 g of vancomycin during this procedure. Patient also had on preoperative studies found to have asymptomatic severe carotid stenosis. Was evaluated Dr. Mcneal today. Recommend follow-up in 1 month. At about 11:00 pm on 02/25, patient had acute onset of a fascia, left greater than right extremity weakness and facial droop. Patient was aphasic and dysarthric. He was intermittently apneic. Was able to follow commands with right upper extremity and lower extremity greater than left lower extremity and upper extremity. A stroke alert was called. CT brain revealed old right parieto-occipital strokes but no acute findings. CT angiogram showed no obvious occlusion. Discussed with Dr. Herron who recommended aspirin per rectum with neurology consult in a.m. along with MRI brain. Dr. Flynn is made aware these findings. Due to his tenuous respiratory status patient was electively intubated using 20 mg etomidate and 50 mg rocuronium. 02/26: remains sedated, orally intubated on mechanical ventilation. 02/27: Remains drowsy, apneic episodes yesterday with CPAP trials. Remains orally intubated on mechanical ventilation. MRI brain revealed right midbrain as well as left medial cerebellar infarcts. CTA brain with right critical carotid artery stenosis and nonvisualized left vertebral artery. Patient appears to have had a posterior circulation stroke probably embolic from left vertebral artery. 02/28: Resting comfortably in bed in no acute distress. T-max 99.1. Arousable and attempts to follow commands with right upper and lower extremities. No bowel movement since admission. Tube feeds currently at 30 cc an hour SUBJECTIVE: 03/01: T-max 103. Currently 100.9. Potassium chloride powder 60 mEq 1 this a.m. Being replaced. Tube feeds at 20 cc an hour. No bowel movement. Neurological exam unchanged. 03/02: patient remains unresponsive with minimal withdrawal to pain. Tmax 102, WBC increased to 19.7. CXR probable LLL pneumonia. CT head evolving brainstem and cerebellar stroke. Encephalopathy may be metabolic, EEG ordered to rule out subclinical seizures. Will start Azactam, Vanc, Flagyl to cover for severe sepsis/probable pneumonia 03/03: Patient remains intubated off sedation T-max 101.7 sputum culture with GNR WBC count is 20.5. Patient developing diarrhea will check C. difficile also. Mental status is slightly improved weakly follows commands on right upper and lower extremities. EEG moderate encephalopathy no seizures 03/04: Remains off all sedation. No spontaneous eye opening but weakly follows commands on right upper and lower extremity, no spontaneous movements on the left. Sputum culture growing Klebsiella and staph aureus. tells me that patient has previously indicated no prolonged life support. She is of the opinion that patient would not have wanted tracheostomy and long-term detention placement 03/05: Patient appears more lethargic today not following commands remains off all sedation no fever reported. Chest x-ray shows persistent left lower lobe infiltrate, tiny left apical pneumothorax. Sputum growing pansensitive Klebsiella and staph aureus on adequate coverage. Will consolidate antibiotic to Levaquin 03/06: Remains intubated off all sedation opens eyes to stimulation. Follow commands weakly on right upper and lower extremity and withdraws on the left side. No significant improvement in alertness 03/07: Remains intubated and remains encephalopathic. Off all sedation. Did not follow commands at this moment but previously was following. 03/08: No changes clinically no acute events reported. Still quite encephalopathic though opens eyes partially and very weakly follows commands on the right side. Continues to withdrawal 4 Objective Vital Signs / I&O: Vital Signs 03/07/18 10:00 03/07/18 12:00 03/07/18 14:00 Temperature 99.9 F H Pulse Rate 66 72 66 Respiratory Rate 19 Blood Pressure 147/72 H Pulse Oximetry 98 03/07/18 16:00 03/07/18 18:00 03/07/18 20:00 Temperature 98.9 F 99.7 F H Pulse Rate 76 72 80 Respiratory Rate 20 20 Blood Pressure 152/72 H 153/72 H Pulse Oximetry 98 98 03/07/18 21:30 03/07/18 22:00 03/08/18 00:00 Temperature Pulse Rate 72 96 H Respiratory Rate 19 Blood Pressure Pulse Oximetry 03/08/18 00:02 03/08/18 02:00 03/08/18 02:29 Temperature Pulse Rate 88 Respiratory Rate 22 21 Blood Pressure Pulse Oximetry 99 98 03/08/18 04:00 03/08/18 04:44 03/08/18 06:00 Temperature 98.1 F Pulse Rate 76 89 Respiratory Rate 20 24 Blood Pressure 151/72 H Pulse Oximetry 98 98 Intake & Output 03/07/18 03/08/18 03/08/18 18:59 06:59 18:59 Intake Total 804 / 804 959 / 959 Output Total 700 / 700 325 / 325 Balance 104 / 104 634 / 634 Intake: IV 150 / 150 250 / 250 Heparin/D5W 25,000 U/250 mL 25, 250 / 250 000 unit In 250 ml @ 1,000 UNITS/HR 10 mls/hr IV.CONT TITRATE PRN Rx#:[id number] Levaquin 750 mg Premix Inj 150 150 / 150 ML @ 100 mls/hr IV.SIG Q24H CELINE Rx#:[id number] Tube Feeding 594 / 594 649 / 649 Tube Irrigant 60 / 60 60 / 60 Output: Urine 600 / 600 Stool 100 / 100 Urine Amount (Catheter) 325 / 325 Condom 325 / 325 Other: # Voids 2 Result Diagrams: 03/08/18 04:44 03/08/18 04:44 Objective Remarks: GENERAL: 77-year-old male currently orotracheally intubated, off all sedation SKIN: Warm and dry. No rash HEAD: Atraumatic. Normocephalic. EYES: Pupils equal and round about 3 mm bilaterally and reactive. No scleral icterus. No injection or drainage. ENT: No nasal bleeding or discharge. Orotracheally intubated. +ET tube secretions NECK: Trachea midline. No JVD. Systolic right 1/6 carotid bruit CARDIOVASCULAR: Regular rate and rhythm. S1, S2. No S4. RESPIRATORY: Few rhonchi at the bases. now on CPAP 04/11 GASTROINTESTINAL: Abdomen soft, non-tender, nondistended. Hepatic and splenic margins not palpable. MUSCULOSKELETAL: Extremities without significant peripheral edema. NEUROLOGICAL: Partially opens eyes to stimulation. 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 CTA brain 02/25 revealed no acute occlusions. CTA neck with occluded left vertebral artery. Carotid ultrasound with critical right carotid artery stenosis MRI of brain with right midbrain infarct and medial left cerebellar infarct Repeat head CT ordered for 02/27, 03/02 revealed stable right brainstem and left cerebellar infarct EEG 03/01 revealed no epileptic activity. Mild encephalopathy. Neurology Dr. Oseguera. Continue ASA. Due to critical right carotid artery stenosis continue heparin. Heparin gtt stroke protocol started on 02/26. Continue timolol 0.5% 1 drop each eye twice daily and brimonidine drip 0.1% 1 drop each eye twice daily. Baclofen 10 mg 3 times daily-hold Keep head of bed at 30. Tylenol for fever CV: Essential hypertension Hyperlipidemia Right carotid artery stenosis Allow for permissive hypertension. Amlodipine 10 mg daily, lisinopril 40 mg daily on hold As needed labetalol and nicardipine drip to keep systolic blood pressure less than 220 2D echocardiogram per CVA protocol revealed EF around 50 to 55%. There is a small pericardial effusion present. . Dr. Mcneal vascular surgery consult initial recommendations follow-up 1 month Continue IV Heparin, ASA Resp: Acute respiratory failure Postop left posterior lateral muscle-sparing thoracotomy with JAYLENE lobectomy and mediastinal lymph node dissection secondary to squamous cell carcinoma the lung by Dr. Holman COPD? 4 pack years tobacco use quit 40 years ago Pneumonia Tiny right apical pneumothorax Currently on PSV 8/5-30%. Daily spontaneous breathing trials but mental status will not permit extubation Ventilator bundle. Albuterol aerosols every 4 hours with albuterol aerosols every 2 hours as needed dyspnea Chest tube removed 03/01 by CTS indicates patient will not want trach and PEG, but family wants to give about 14 days (until 03/10/18) to see whether the patient improves-otherwise might choose comfort measures Follow-up chest x-ray in a.m., no indication for chest tube at this time GI: Gastroesophageal reflux disease on omeprazole 20 mg daily at home History of EGD with dilatation? Constipation Hypoalbuminemia Tube feeds with Jevity 1.5 Pantoprazole switch to lansoprazole for GI prophylaxis Docusate sodium 100 mg twice daily, senna liquid 8.8 mg twice daily, polyethylene glycol 17 g twice daily and lactulose 30 cc 4 times daily KUB showed mild distended colon C. difficile-negative Endo: Sliding scale insulin with Accu-Cheks every 6 hours/low regimen of NovoLog to maintain euglycemia Renal: Creatinine currently within normal limits Monitor urine output, Accurate I's and O's Rodriguez catheter will be placed for accurate I's and O's in a critically ill patient Heme: Leukocytosis Normocytic anemia Monitor CBC daily. Follow trends ID: Healthcare associated pneumonia (Klebsiella/Staph aureus) Continue Levaquin 750 mg IV every 24 hours Follow-up on blood urine and sputum cultures-Klebsiella staph aureus Monitor for signs and symptomatology infection C. difficile negative Access -Utilize peripheral IV. Central line if indicated Prophylaxis -GI -pantoprazole -DVT -SCDs/pharmacological prophylaxis provided by heparin drip Level 2 Encephalopathy and decreased level of alertness secondary to brainstem infarct, sepsis will not permit extubation. indicates patient has a living will and he will not want long-term detention/rehab placement, or trach and PEG. Palliative care following DNR now. Also indicated that they want to wait a total of 14 days at least to see whether the patient is improving, that is most likely until 03/10/18
[2018-03-08] MEDS: Docusate Sodium Liq 100 MG/10 ML UDC PO SCH ×2 (09:45→21:12)
[2018-03-08] MEDS: Chlorhexidine 0.12% Oral Kit 15 ML UDC SWISH-SPIT SCH ×2 (09:47→21:05)
[2018-03-08] MEDS: Sennosides Liq 8.8 MG/5 ML UDC PO SCH ×2 (09:47→21:12)
[2018-03-08] MEDS: Artificial Tears Opth Oint 3.5 GM Tube EACH EYE SCH ×2 (09:48→21:50)
[2018-03-08] MEDS: Polyethylene Glycol 3350 17 GM Packet NG/OG SCH ×2 (09:48→21:12)
[2018-03-08] MEDS: OPTH EACH EYE SCH ×2 (09:49→21:14)
[2018-03-08] MEDS: Timolol 0.5% Drops 5 ML Bottle EACH EYE SCH ×2 (09:49→21:14)
[2018-03-08] MEDS: BRIMONIDINE 0.1% EACH EYE SCH ×2 (09:49→21:14)
--- NOTE | 2018-03-08 16:43 | P.PNPAL ---
Reason for Visit Reason for visit: Reason for visit a. To assist with evaluation and management of symptoms including: encephalopathy b. To assist medical decision maker(s) with: better understanding of current medical conditions; weighing benefits/burdens of medical treatment options; making medical treatment decisions. . Subjective Subjective/Interval History: Weekend Mr. Escobar is a 77-year-old male who underwent a left posterolateral muscle-sparing thoracotomy with a left upper lobe lobectomy and mediastinal lymph node dissection by Dr. Holman on 02/25/2018. Overnight on 02/25/18 a stroke alert was called after the patient developed left-sided weakness and facial droop. An MRI of the brain the following morning showed restricted effusion characteristic for acute infarction appear to be present involving the mid to right portion of the midbrain as well as the left vermis and medial aspect of the left cerebellar hemisphere. Echocardiogram revealed left ventricular systolic function was low normal with an estimated EF of 50-55%. An ultrasound of the carotid arteries revealed critical stenosis of the right carotid artery. Given US results, neurology recommended anticoagulation which was discussed with Dr. Holman who amenable to starting heparin. Heparin GTT stroke protocol started on 02/26/18. Follow up visit for symptom management and clarification of medical treatment goals. Patient seen and assessed in [facility] earlier this morning, room 1335. at bedside. Patient remain intubated on mechanical ventilation, tolerating CPAP trials this morning.. Follow-up chest x-ray on 03/08/2018 showing persistent partial consolidation of the left lower lung. T-max 100.3 WBC trending downward at 13.2. Sputum cultures growing Klebsiella and Staph aureus. On Azactam, Vancomycin and Flagyl to cover for severe sepsis/ probable pneumonia Patient arouses to verbal stimuli. Follows commands with upper and lower extremities on the right side. CT head on 03/02/18 showed evolving brainstem and cerebellar stroke; areas of encephalomalacia in the left parietal, occipital and frontal lobes; atrophy. EEG consistent with moderate diffuse encephalopathy; no seizure activity was noted. Patient has completed a living will that states he would not want life prolonging procedures if there was no reasonable expectation of his recovery from physical or mental disability; family has been considering compassionate withdrawal of artificial life support. Palliative care spoke with patient's at bedside. She was appropriately tearful stating, "that's not my anymore. It's just his shell. He wouldn't want any of this." Likely withdrawal later this week on , 03/11/2018. . Advance Directives Living Will: Copy in medical record Health Care Surrogate: Copy in medical record Advance Directives Date on File: 03/26/09 Health Care Surrogate Name and Number: Primary: Janna Escobar: [phone] Alt: Arabella Xie: [phone] Documented care wishes:: A living will and healthcare surrogate designation form was completed on 2008. Documents are accessible in the patient's paper chart and have been faxed to HIM to be scanned into the patient's EMR. . Significant change in goals:: None at this time. . Objective Vital Signs: Vital Signs 03/07/18 18:00 03/07/18 20:00 03/07/18 21:30 Temperature 99.7 F H Pulse Rate 72 80 Respiratory Rate 20 19 Blood Pressure 153/72 H Pulse Oximetry 98 03/07/18 22:00 03/08/18 00:00 03/08/18 00:02 Temperature Pulse Rate 72 96 H Respiratory Rate 22 Blood Pressure Pulse Oximetry 99 03/08/18 02:00 03/08/18 02:29 03/08/18 04:00 Temperature 98.1 F Pulse Rate 88 76 Respiratory Rate 21 20 Blood Pressure 151/72 H Pulse Oximetry 98 98 03/08/18 04:44 03/08/18 06:00 03/08/18 08:00 Temperature 100.3 F H Pulse Rate 89 82 Respiratory Rate 24 21 Blood Pressure 168/78 H Pulse Oximetry 98 03/08/18 09:12 03/08/18 10:00 03/08/18 12:00 Temperature 100.1 F H Pulse Rate 84 90 Respiratory Rate 21 16 Blood Pressure 142/65 H Pulse Oximetry 97 03/08/18 12:29 03/08/18 14:00 Temperature Pulse Rate 76 Respiratory Rate 17 Blood Pressure Pulse Oximetry Intake & Output 03/07/18 03/08/18 03/08/18 18:59 06:59 18:59 Intake Total 804 / 804 959 / 959 1160 / 1160 Output Total 700 / 700 325 / 325 Balance 104 / 104 634 / 634 1160 / 1160 Intake: IV 150 / 150 250 / 250 1000 / 1000 Heparin/D5W 25,000 U/250 mL 25, 250 / 250 000 unit In 250 ml @ 1,000 UNITS/HR 10 mls/hr IV.CONT TITRATE PRN Rx#:[id number] LR 1000 mL Inj 1,000 ML @ 30 1000 / 1000 mls/hr IV.SIG .Q24H CELINE Rx#: [id number] Levaquin 750 mg Premix Inj 150 150 / 150 ML @ 100 mls/hr IV.SIG Q24H CELINE Rx#:[id number] Tube Feeding 594 / 594 649 / 649 Tube Irrigant 60 / 60 60 / 60 Water Bolus Amount 160 / 160 Output: Urine 600 / 600 Stool 100 / 100 Urine Amount (Catheter) 325 / 325 Condom 325 / 325 Other: # Voids 2 . Physical Exam: CONSTITUTIONAL/GENERAL: This is an adequately nourished patient, currently intubated on mechanical ventilation TUBES/LINES/DRAINS: PIV 3, ETT, NGT, Rodriguez catheter, SCDs SKIN: No jaundice, rashes, or lesions. Ecchymoses on upper extremities. Skin temperature appropriate. Not diaphoretic. HEAD: Atraumatic. Normocephalic. EYES: Pupils equal and round and reactive. No scleral icterus. No injection or drainage. Fundi not examined. ENT: Hearing grossly normal. Nose without bleeding or purulent drainage. NECK: Trachea midline. Supple, nontender. No palpable thyroid enlargement or nodularity. CARDIOVASCULAR: Regular rate and rhythm without murmurs, gallops, or rubs. No JVD. Peripheral pulses symmetric. RESPIRATORY/CHEST: Intubated on mechanical ventilation. No accessory muscle use. Breath sounds diminished on the left. No wheezes, rales, or rhonchi. GASTROINTESTINAL: Abdomen soft, non-tender, nondistended. No guarding. Bowel sounds present. GENITOURINARY: Without palpable bladder distension. Rodriguez catheter in place- draining staci urine MUSCULOSKELETAL: Extremities without clubbing, cyanosis, or edema. No mottling or clubbing. LYMPHATICS: No palpable cervical or supraclavicular adenopathy. NEUROLOGICAL: Does not open eyes to verbal stimuli. Squeezing right hand to command. PSYCHIATRIC: No anxiety/agitation noted. . Diagnostic Tests Laboratory: Laboratory Results - last 72 hr 03/04/18 03/05/18 03/05/18 06:45 05:05 05:05 WBC RBC Hgb Hct MCV MCH MCHC RDW Plt Count MPV Neut % (Auto) Lymph % (Auto) Cecil % (Auto) Eos % (Auto) Baso % (Auto) Neut # (Auto) Lymph # (Auto) Cecil # (Auto) Eos # (Auto) Baso # (Auto) CBC Comment Total Counted Neutrophils % (Manual) Band Neutrophils % Lymphocytes % Monocytes % Eosinophils % Neutrophils # (Manual) Myelocytes Differential Comment Platelet Estimate Plt Morphology Comment RBC Morph Comment APTT 48.5 H 65.1 H D Sodium 146 H Potassium 3.3 L Chloride 111 H Carbon Dioxide 24.9 Anion Gap 10 BUN 25 H Creatinine 1.07 Estimated GFR 67 L Random Glucose 104 Calcium 7.9 L Magnesium 2.7 H Total Bilirubin 0.4 AST 30 ALT 22 Alkaline Phosphatase 68 Ammonia Total Protein 6.8 Albumin 1.7 L 03/05/18 03/06/18 03/06/18 05:05 04:22 04:22 WBC 18.6 H RBC 3.39 L Hgb 9.6 L Hct 28.7 L MCV 84.7 MCH 28.4 MCHC 33.5 RDW 14.5 Plt Count 305 MPV 9.4 Neut % (Auto) 77.8 H Lymph % (Auto) 7.4 L Cecil % (Auto) 12.6 H Eos % (Auto) 2.0 Baso % (Auto) 0.2 Neut # (Auto) 14.5 H Lymph # (Auto) 1.4 Cecil # (Auto) 2.3 H Eos # (Auto) 0.4 Baso # (Auto) 0.0 CBC Comment AUTO DIFF Total Counted 100 Neutrophils % (Manual) 77 H Band Neutrophils % 2 Lymphocytes % 6 L Monocytes % 13 H Eosinophils % 1 Neutrophils # (Manual) 14.9 H Myelocytes 1 H Differential Comment FINAL DIFF MANUAL Platelet Estimate NORMAL Plt Morphology Comment NORMAL RBC Morph Comment APTT 65.8 H Sodium 144 Potassium 3.7 Chloride 111 H Carbon Dioxide 24.9 Anion Gap 8 BUN 27 H Creatinine 0.95 Estimated GFR 77 L Random Glucose 101 Calcium 7.6 L Magnesium 2.5 Total Bilirubin 0.4 AST 180 H ALT 96 H Alkaline Phosphatase 70 Ammonia Total Protein 6.3 L Albumin 1.5 L 03/06/18 03/07/18 03/08/18 04:22 06:52 04:44 WBC 20.9 H RBC 3.16 L Hgb 8.9 L Hct 26.5 L MCV 83.8 MCH 28.2 MCHC 33.7 RDW 14.3 Plt Count 300 MPV 9.2 Neut % (Auto) 82.9 H Lymph % (Auto) 5.8 L Cecil % (Auto) 8.3 H Eos % (Auto) 2.5 Baso % (Auto) 0.5 Neut # (Auto) 17.3 H Lymph # (Auto) 1.2 Cecil # (Auto) 1.7 H Eos # (Auto) 0.5 H Baso # (Auto) 0.1 CBC Comment AUTO DIFF Total Counted Neutrophils % (Manual) Band Neutrophils % Lymphocytes % Monocytes % Eosinophils % Neutrophils # (Manual) Myelocytes Differential Comment AUTO DIFF CONFIRMED Platelet Estimate NORMAL Plt Morphology Comment NORMAL RBC Morph Comment NORMAL APTT 43.9 H Sodium 143 Potassium 3.3 L Chloride 109 H Carbon Dioxide 26.0 Anion Gap 8 BUN 16 Creatinine 0.86 Estimated GFR 86 L Random Glucose 127 H Calcium 8.1 L Magnesium Total Bilirubin 0.3 AST 98 H ALT 94 H Alkaline Phosphatase 127 H Ammonia Total Protein 6.6 Albumin 1.5 L 03/08/18 03/08/18 03/08/18 04:44 04:44 10:25 WBC 13.2 H RBC 3.44 L Hgb 9.6 L Hct 29.2 L MCV 84.8 MCH 28.0 MCHC 33.1 RDW 14.4 Plt Count 370 MPV 9.4 Neut % (Auto) Lymph % (Auto) Cecil % (Auto) Eos % (Auto) Baso % (Auto) Neut # (Auto) Lymph # (Auto) Cecil # (Auto) Eos # (Auto) Baso # (Auto) CBC Comment Total Counted Neutrophils % (Manual) Band Neutrophils % Lymphocytes % Monocytes % Eosinophils % Neutrophils # (Manual) Myelocytes Differential Comment Platelet Estimate Plt Morphology Comment RBC Morph Comment APTT 55.1 H D Sodium Potassium Chloride Carbon Dioxide Anion Gap BUN Creatinine Estimated GFR Random Glucose Calcium Magnesium Total Bilirubin AST ALT Alkaline Phosphatase Ammonia 34 H Total Protein Albumin . Result Diagrams: 03/08/18 04:44 03/08/18 04:44 Imaging: Chest X-Ray 03/08/18 06:00 CONCLUSION: Persistent partial consolidation left lower lung. . Assessment and Plan - Disease Oriented Problem List (1) Carotid stenosis (2) CVA (cerebral vascular accident) (3) Respiratory failure requiring intubation (4) Status post lobectomy of lung (5) Status post thoracotomy (6) Pneumonia - Symptom Scale (1) Encephalopathy 0-10 Scale: Unable to quantify Pertinent Non-Medical Issues: Psychosocial:Patient is originally from [facility]; his is from [place]. They have been for nearly 55 years. Together they have 2 children (Arabella and Toño) and 3 grandchildren. Arabella lives in [place] and Toño lives in [place]. The patient and his family moved to the area approximately 48 years ago. 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 Spiritual: Bahai corey Legal: A living will and healthcare surrogate designation form was completed on 03/26/2009. Documents are accessible in the patient's paper chart and have been faxed to HIM to be scanned into the patient's EMR. Patient's , Janna Escobar , is designated as the healthcare surrogate decision maker. DaughterArabella is designated as the alternate healthcare surrogate decision maker. Ethical issues impacting care: No known ethical issues at this time. . Important Contacts: Zoraida Escobar, : [phone] Arabella Xie, daughter: [phone] . Prognosis: 77 year old who suffered and brainstem and cerebellar CVA status post thoracotomy with left upper lobe lobectomy and lymph node dissection. Preop studies revealed severe, asymptomatic right-sided carotid stenosis. Given patient's advanced age and multiple comorbid conditions; he is at risk for setbacks and complications. . Code Status: No Code DNR (No reintubation) Plan: NO CODE * A living will and healthcare surrogate designation form was completed on 2008. Documents are accessible in the patient's paper chart and have been faxed to HIM to be scanned into the patient's EMR * Decision-making: Patient currently does not have insight or judgment related to his medical conditions. Patient's , Janna Escobar, is designated as the healthcare surrogate decision maker. DaughterArabella is designated as the alternate healthcare surrogate decision maker. * Palliative care spoke with patient's at bedside. She was appropriately tearful stating, "that's not my anymore. It's just his shell. he wouldn' t want any of this." Likely withdrawal later this week on , 03/11/2018. * Discussed this patient with Dr. Blakely * Symptom management-encephalopathy: status post brainstem and cerebellar CVA; severe right sided carotid stenosis. Patient opens eyes to verbal stimuli. Weakly follows commands with right upper and lower extremity. CT head on showed evolving brainstem and cerebellar stroke; areas of encephalomalacia in the left parietal, occipital and frontal lobes; atrophy. EEG consistent with moderate diffuse encephalopathy; no seizure activity was noted. * Palliative care will follow the patient throughout his hospitalization to establish trust, assist with symptom management and clarification of medical treatment goals. . Attestation Attestation: To help prompt me to consider important information that might be impacting today's encounter and assessment, information from prior notes written by myself or my colleagues may have been "brought forward" into today's note. My signature on this note, however, is an attestation that I personally performed the exam, history, and/or decision-making noted today, and, unless otherwise indicated, the interactions with patient, family, and staff as well as the review of records all occurred today. I also attest that the listed assessment and stated plan reflect my best clinical judgment today based on the combination of historical information, prior notes, and today's exam/ interactions. When time spent is documented, it refers only to time spent today by the signer, or if indicated, combined time spent today by collaborating physician/nurse practitioner. .
[2018-03-09] MEDS: Oral Hygiene Kit OROPHARYNG SCH ×4 (01:13→16:00)
[2018-03-09] MEDS: Chlorhexidine 0.12% Oral Kit 15 ML UDC SWISH-SPIT SCH ×2 (08:00→20:25)
[2018-03-09] MEDS: Sennosides Liq 8.8 MG/5 ML UDC PO SCH ×2 (08:00→20:26)
[2018-03-09] MEDS: OPTH EACH EYE SCH ×2 (08:00→20:26)
[2018-03-09] MEDS: BRIMONIDINE 0.1% EACH EYE SCH ×2 (08:00→20:26)
[2018-03-09] MEDS: Timolol 0.5% Drops 5 ML Bottle EACH EYE SCH ×2 (08:00→20:26)
[2018-03-09] MEDS: Polyethylene Glycol 3350 17 GM Packet NG/OG SCH ×2 (08:00→20:25)
[2018-03-09] MEDS: Artificial Tears Opth Oint 3.5 GM Tube EACH EYE SCH ×2 (08:00→20:25)
[2018-03-09] MEDS: Docusate Sodium Liq 100 MG/10 ML UDC PO SCH ×2 (08:00→20:25)
--- NOTE | 2018-03-09 10:08 | P.PNCC ---
Subjective Subjective Remarks/Hospital Course: 02/25: This is a 77-year-old male. Date of admission 02/25/2018. Date of consultation 02/25/2018. 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 During the workup patient was noted to have carotid artery stenosis by Dr. Donahue. Patient has known history of left upper lobe lung cancer/invasive squamous cell carcinoma type. Today patient with a left posterolateral muscle-sparing thoracotomy with a left upper lobe lobectomy and mediastinal lymph node dissection by Dr. Holman. 1100 cc crystalloid. 20 cc EBL. 250 cc urine output. Patient received 1 g of vancomycin during this procedure. Patient also had on preoperative studies found to have asymptomatic severe carotid stenosis. Was evaluated Dr. Mcneal today. Recommend follow-up in 1 month. At about 11:00 pm on 02/25, patient had acute onset of a fascia, left greater than right extremity weakness and facial droop. Patient was aphasic and dysarthric. He was intermittently apneic. Was able to follow commands with right upper extremity and lower extremity greater than left lower extremity and upper extremity. A stroke alert was called. CT brain revealed old right parieto-occipital strokes but no acute findings. CT angiogram showed no obvious occlusion. Discussed with Dr. Herron who recommended aspirin per rectum with neurology consult in a.m. along with MRI brain. Dr. Flynn is made aware these findings. Due to his tenuous respiratory status patient was electively intubated using 20 mg etomidate and 50 mg rocuronium. 02/26: remains sedated, orally intubated on mechanical ventilation. 02/27: Remains drowsy, apneic episodes yesterday with CPAP trials. Remains orally intubated on mechanical ventilation. MRI brain revealed right midbrain as well as left medial cerebellar infarcts. CTA brain with right critical carotid artery stenosis and nonvisualized left vertebral artery. Patient appears to have had a posterior circulation stroke probably embolic from left vertebral artery. 02/28: Resting comfortably in bed in no acute distress. T-max 99.1. Arousable and attempts to follow commands with right upper and lower extremities. No bowel movement since admission. Tube feeds currently at 30 cc an hour SUBJECTIVE: 03/01: T-max 103. Currently 100.9. Potassium chloride powder 60 mEq 1 this a.m. Being replaced. Tube feeds at 20 cc an hour. No bowel movement. Neurological exam unchanged. 03/02: patient remains unresponsive with minimal withdrawal to pain. Tmax 102, WBC increased to 19.7. CXR probable LLL pneumonia. CT head evolving brainstem and cerebellar stroke. Encephalopathy may be metabolic, EEG ordered to rule out subclinical seizures. Will start Azactam, Vanc, Flagyl to cover for severe sepsis/probable pneumonia 03/03: Patient remains intubated off sedation T-max 101.7 sputum culture with GNR WBC count is 20.5. Patient developing diarrhea will check C. difficile also. Mental status is slightly improved weakly follows commands on right upper and lower extremities. EEG moderate encephalopathy no seizures 03/04: Remains off all sedation. No spontaneous eye opening but weakly follows commands on right upper and lower extremity, no spontaneous movements on the left. Sputum culture growing Klebsiella and staph aureus. tells me that patient has previously indicated no prolonged life support. She is of the opinion that patient would not have wanted tracheostomy and long-term skilled nursing placement 03/05: Patient appears more lethargic today not following commands remains off all sedation no fever reported. Chest x-ray shows persistent left lower lobe infiltrate, tiny left apical pneumothorax. Sputum growing pansensitive Klebsiella and staph aureus on adequate coverage. Will consolidate antibiotic to Levaquin 03/06: Remains intubated off all sedation opens eyes to stimulation. Follow commands weakly on right upper and lower extremity and withdraws on the left side. No significant improvement in alertness 03/07: Remains intubated and remains encephalopathic. Off all sedation. Did not follow commands at this moment but previously was following. 03/08: No changes clinically no acute events reported. Still quite encephalopathic though opens eyes partially and very weakly follows commands on the right side. Continues to withdrawal 4 03/09: Neuro exam remains essentially unchanged patient remains very weak but able to follow commands very weakly on the right upper and lower extremity. Flaccid on the left side. Objective Vital Signs / I&O: Vital Signs 03/08/18 12:00 03/08/18 12:29 03/08/18 14:00 Temperature 100.1 F H Pulse Rate 90 76 Respiratory Rate 16 17 Blood Pressure 142/65 H Pulse Oximetry 03/08/18 16:00 03/08/18 16:55 03/08/18 18:00 Temperature 99.0 F Pulse Rate 77 92 H Respiratory Rate 22 22 Blood Pressure 150/70 H Pulse Oximetry 97 03/08/18 20:00 03/08/18 22:00 03/08/18 22:03 Temperature 99.6 F Pulse Rate 78 82 Respiratory Rate 19 16 Blood Pressure 160/72 H Pulse Oximetry 97 97 03/08/18 23:48 03/09/18 00:00 03/09/18 01:10 Temperature Pulse Rate 82 80 Respiratory Rate 17 15 17 Blood Pressure 129/64 Pulse Oximetry 96 03/09/18 02:00 03/09/18 04:00 03/09/18 04:17 Temperature Pulse Rate 70 74 Respiratory Rate 15 15 Blood Pressure 186/84 H Pulse Oximetry 97 03/09/18 04:39 03/09/18 06:00 03/09/18 09:14 Temperature Pulse Rate 68 60 76 Respiratory Rate 16 14 Blood Pressure Pulse Oximetry 98 Intake & Output 03/08/18 03/09/18 03/09/18 18:59 06:59 18:59 Intake Total 2300 / 2300 1133 / 1133 Output Total 650 / 650 755 / 755 Balance 1650 / 1650 378 / 378 Intake: IV 1400 / 1400 Heparin/D5W 25,000 U/250 mL 25, 250 / 250 000 unit In 250 ml @ 1,000 UNITS/HR 10 mls/hr IV.CONT TITRATE PRN Rx#:[id number] LR 1000 mL Inj 1,000 ML @ 30 1000 / 1000 mls/hr IV.SIG .Q24H CELINE Rx#: [id number] Levaquin 750 mg Premix Inj 150 150 / 150 ML @ 100 mls/hr IV.SIG Q24H CELINE Rx#:[id number] Tube Feeding 660 / 660 1073 / 1073 Tube Irrigant 60 / 60 Water Bolus Amount 240 / 240 Output: Urine 650 / 650 Stool 380 / 380 Urine Amount (Catheter) 375 / 375 Condom 375 / 375 Other: # Voids 5 Date of Last Bowel Movement 03/09/18 Result Diagrams: 03/08/18 04:44 03/09/18 03:22 Objective Remarks: GENERAL: 77-year-old male currently orotracheally intubated, off all sedation SKIN: Warm and dry. No rash HEAD: Atraumatic. Normocephalic. EYES: Pupils equal and round about 3 mm bilaterally and reactive. No scleral icterus. No injection or drainage. ENT: No nasal bleeding or discharge. Orotracheally intubated. +ET tube secretions NECK: Trachea midline. No JVD. Systolic right 1/6 carotid bruit CARDIOVASCULAR: Regular rate and rhythm. S1, S2. No S4. RESPIRATORY: Few rhonchi at the bases. now on CPAP 04/11 GASTROINTESTINAL: Abdomen soft, non-tender, nondistended. Hepatic and splenic margins not palpable. MUSCULOSKELETAL: Extremities without significant peripheral edema. NEUROLOGICAL: Partially opens eyes to stimulation. Follows commands today on right upper and lower extremity but very weakly. 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 CTA brain 02/25 revealed no acute occlusions. CTA neck with occluded left vertebral artery. Carotid ultrasound with critical right carotid artery stenosis MRI of brain with right midbrain infarct and medial left cerebellar infarct Repeat head CT 02/27, 03/02 revealed stable right brainstem and left cerebellar infarct EEG 03/01 revealed no epileptic activity. Mild encephalopathy. Neurology Dr. Oseguera. Continue ASA. Due to critical right carotid artery stenosis continue heparin. Heparin gtt stroke protocol started on 02/26. Continue timolol 0.5% 1 drop each eye twice daily and brimonidine drip 0.1% 1 drop each eye twice daily. Baclofen 10 mg 3 times daily-hold Keep head of bed at 30. Tylenol for fever CV: Essential hypertension Hyperlipidemia Right carotid artery stenosis Allow for permissive hypertension. Amlodipine 10 mg daily, lisinopril 40 mg daily on hold As needed labetalol and nicardipine drip to keep systolic blood pressure less than 220 2D echocardiogram per CVA protocol revealed EF around 50 to 55%. There is a small pericardial effusion present. . Dr. Mcneal vascular surgery consult initial recommendations follow-up 1 month Continue IV Heparin, ASA Resp: Acute respiratory failure Postop left posterior lateral muscle-sparing thoracotomy with JAYLENE lobectomy and mediastinal lymph node dissection secondary to squamous cell carcinoma the lung by Dr. Holman COPD? 4 pack years tobacco use quit 40 years ago Pneumonia Tiny right apical pneumothorax Currently on PSV 8/5-30%. Daily spontaneous breathing trials but mental status will not permit extubation Ventilator bundle. Albuterol aerosols every 4 hours with albuterol aerosols every 2 hours as needed dyspnea Chest tube removed 03/01 by CTS indicates patient will not want trach and PEG, but family wants to give about 14 days (until 03/10/18) to see whether the patient improves-otherwise might choose comfort measures Follow-up chest x-ray in a.m., no indication for chest tube at this time GI: Gastroesophageal reflux disease on omeprazole 20 mg daily at home History of EGD with dilatation? Constipation Hypoalbuminemia Tube feeds with Jevity 1.5 Pantoprazole switch to lansoprazole for GI prophylaxis Docusate sodium 100 mg twice daily, senna liquid 8.8 mg twice daily, polyethylene glycol 17 g twice daily and lactulose 30 cc 4 times daily KUB showed mild distended colon C. difficile-negative Endo: Sliding scale insulin with Accu-Cheks every 6 hours/low regimen of NovoLog to maintain euglycemia Renal: Creatinine currently within normal limits Monitor urine output, Accurate I's and O's Rodriguez catheter will be placed for accurate I's and O's in a critically ill patient Heme: Leukocytosis Normocytic anemia Monitor CBC daily. Follow trends ID: Healthcare associated pneumonia (Klebsiella/Staph aureus) Continue Levaquin 750 mg IV every 24 hours. Complete 7 days Follow-up on blood urine and sputum cultures-Klebsiella staph aureus Monitor for signs and symptomatology infection C. difficile negative Access -Utilize peripheral IV. Central line if indicated Prophylaxis -GI -pantoprazole -DVT -SCDs/pharmacological prophylaxis provided by heparin drip Level 2 Encephalopathy and decreased level of alertness secondary to brainstem infarct, sepsis will not permit extubation. indicates patient has a living will and he will not want long-term skilled nursing/rehab placement, or trach and PEG. Palliative care following DNR now. Also indicated that they want to wait a total of 14 days at least to see whether the patient is improving, that is most likely until 03/11/18
[2018-03-09] MEDS: Heparin Drip 25,000 UNIT/250 ML BAG IV.CONT PRN (11:45)
--- NOTE | 2018-03-09 13:29 | P.DIET ---
Nutritional Evaluation Type of nutrition evaluation: follow-up Nutrition consult regarding: Tube Feeding (02/28 MDC for TFing) Objective - Objective % IBW: 113 Body Weight Used for Calculations: Actual (82.5 kg) Energy Needs - Lower Range (kCal/kg): 25 Energy Needs - Upper Range (kCal/kg): 30 Lower Limit kCal/kg (kCals): 2,063 Upper Limit kCal/kg (kCals): 2,475 Lower Limit Protein Factor (Grams per Kg): 1 Upper Limit Protein Factor (Grams per Kg): 1.5 Lower Protein Needs (Protein): 83 Upper Protein Needs (Protein): 124 Dietitian Reviewed in Medical Record: Curent medications, Intake & Output, Labs , Medical history, Tube feeding Objective Comments: Hx includes glaucoma, cataracts, squamous cell CA of L lung, hyperlipidemia, HTN , GERD Labs: gianni 34 Feeding - Current Tube Feeding Tube Feeding Product: Jevity 1.5 Tube Feeding Method: Pump Tube Feeding Rate: 60 (mls/hr) Current kCals Provided by Tube Feedin,160 Current Protein Provided by Tube Feeding (gPRO): 92 Current Free H2O Provided (m/l): 1,094 Assessment Assessment: Pt is at high nutrition risk 2' to his need for TFing. Current TF of Jevity 1.5 @ 60 mls/hr is adequately meeting nutritional needs. Sedation is off. Pt with diarrhea in collection bag per nursing. Recommendations: Continue Jevity 1.5 @ 60 mls/hr goal Dietitian to Monitor: Lab values, Intake & Output, Tube feeding tolerance, Weight change, Medical course
[2018-03-10] MEDS: Oral Hygiene Kit OROPHARYNG SCH ×4 (00:20→15:14)
[2018-03-10] MEDS: Heparin Drip 25,000 UNIT/250 ML BAG IV.CONT PRN ×2 (04:59→20:51)
[2018-03-10] MEDS: Polyethylene Glycol 3350 17 GM Packet NG/OG SCH ×2 (08:13→20:53)
[2018-03-10] MEDS: Sennosides Liq 8.8 MG/5 ML UDC PO SCH ×2 (08:13→20:54)
[2018-03-10] MEDS: Chlorhexidine 0.12% Oral Kit 15 ML UDC SWISH-SPIT SCH ×2 (08:21→20:53)
[2018-03-10] MEDS: Docusate Sodium Liq 100 MG/10 ML UDC PO SCH ×2 (08:21→20:46)
[2018-03-10] MEDS: BRIMONIDINE 0.1% EACH EYE SCH ×2 (08:22→20:54)
[2018-03-10] MEDS: Artificial Tears Opth Oint 3.5 GM Tube EACH EYE SCH ×2 (08:22→20:53)
[2018-03-10] MEDS: OPTH EACH EYE SCH ×2 (08:22→20:54)
[2018-03-10] MEDS: Timolol 0.5% Drops 5 ML Bottle EACH EYE SCH ×2 (08:23→20:54)
[2018-03-10] MEDS: Insulin NovoLOG Aspart Correctional Sugar Inj SQ SCH ×3 (10:28→10:32)
--- NOTE | 2018-03-10 11:54 | P.PNCC ---
Subjective Subjective Remarks/Hospital Course: 02/25: This is a 77-year-old male. Date of admission 02/25/2018. Date of consultation 02/25/2018. 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 During the workup patient was noted to have carotid artery stenosis by Dr. Donahue. Patient has known history of left upper lobe lung cancer/invasive squamous cell carcinoma type. Today patient with a left posterolateral muscle-sparing thoracotomy with a left upper lobe lobectomy and mediastinal lymph node dissection by Dr. Holman. 1100 cc crystalloid. 20 cc EBL. 250 cc urine output. Patient received 1 g of vancomycin during this procedure. Patient also had on preoperative studies found to have asymptomatic severe carotid stenosis. Was evaluated Dr. Mcneal today. Recommend follow-up in 1 month. At about 11:00 pm on 02/25, patient had acute onset of a fascia, left greater than right extremity weakness and facial droop. Patient was aphasic and dysarthric. He was intermittently apneic. Was able to follow commands with right upper extremity and lower extremity greater than left lower extremity and upper extremity. A stroke alert was called. CT brain revealed old right parieto-occipital strokes but no acute findings. CT angiogram showed no obvious occlusion. Discussed with Dr. Herron who recommended aspirin per rectum with neurology consult in a.m. along with MRI brain. Dr. Flynn is made aware these findings. Due to his tenuous respiratory status patient was electively intubated using 20 mg etomidate and 50 mg rocuronium. 02/26: remains sedated, orally intubated on mechanical ventilation. 02/27: Remains drowsy, apneic episodes yesterday with CPAP trials. Remains orally intubated on mechanical ventilation. MRI brain revealed right midbrain as well as left medial cerebellar infarcts. CTA brain with right critical carotid artery stenosis and nonvisualized left vertebral artery. Patient appears to have had a posterior circulation stroke probably embolic from left vertebral artery. 02/28: Resting comfortably in bed in no acute distress. T-max 99.1. Arousable and attempts to follow commands with right upper and lower extremities. No bowel movement since admission. Tube feeds currently at 30 cc an hour SUBJECTIVE: 03/01: T-max 103. Currently 100.9. Potassium chloride powder 60 mEq 1 this a.m. Being replaced. Tube feeds at 20 cc an hour. No bowel movement. Neurological exam unchanged. 03/02: patient remains unresponsive with minimal withdrawal to pain. Tmax 102, WBC increased to 19.7. CXR probable LLL pneumonia. CT head evolving brainstem and cerebellar stroke. Encephalopathy may be metabolic, EEG ordered to rule out subclinical seizures. Will start Azactam, Vanc, Flagyl to cover for severe sepsis/probable pneumonia 03/03: Patient remains intubated off sedation T-max 101.7 sputum culture with GNR WBC count is 20.5. Patient developing diarrhea will check C. difficile also. Mental status is slightly improved weakly follows commands on right upper and lower extremities. EEG moderate encephalopathy no seizures 03/04: Remains off all sedation. No spontaneous eye opening but weakly follows commands on right upper and lower extremity, no spontaneous movements on the left. Sputum culture growing Klebsiella and staph aureus. tells me that patient has previously indicated no prolonged life support. She is of the opinion that patient would not have wanted tracheostomy and long-term detention placement 03/05: Patient appears more lethargic today not following commands remains off all sedation no fever reported. Chest x-ray shows persistent left lower lobe infiltrate, tiny left apical pneumothorax. Sputum growing pansensitive Klebsiella and staph aureus on adequate coverage. Will consolidate antibiotic to Levaquin 03/06: Remains intubated off all sedation opens eyes to stimulation. Follow commands weakly on right upper and lower extremity and withdraws on the left side. No significant improvement in alertness 03/07: Remains intubated and remains encephalopathic. Off all sedation. Did not follow commands at this moment but previously was following. 03/08: No changes clinically no acute events reported. Still quite encephalopathic though opens eyes partially and very weakly follows commands on the right side. Continues to withdrawal 4 03/09: Neuro exam remains essentially unchanged patient remains very weak but able to follow commands very weakly on the right upper and lower extremity. Flaccid on the left side. 03/10: Patient is slightly more awake on my exam, again very weakly follows commands. I am worried that patient will not be able to protect airway if extubated. According to palliative care family still planning on withdrawal of support and comfort measures tomorrow 03/11/2018 Objective Vital Signs / I&O: Vital Signs 03/09/18 12:00 03/09/18 12:02 03/09/18 14:00 Temperature 99.0 F Pulse Rate 70 75 76 Respiratory Rate 17 15 Blood Pressure 192/72 H Pulse Oximetry 97 96 03/09/18 16:00 03/09/18 17:08 03/09/18 18:00 Temperature 99.1 F Pulse Rate 76 94 H 81 Respiratory Rate 20 22 Blood Pressure 157/71 H Pulse Oximetry 97 100 03/09/18 19:42 03/09/18 20:00 03/09/18 22:00 Temperature 99.6 F Pulse Rate 87 80 78 Respiratory Rate 20 16 Blood Pressure 144/67 H Pulse Oximetry 98 97 03/10/18 00:00 03/10/18 00:37 03/10/18 02:00 Temperature 99.2 F Pulse Rate 76 83 78 Respiratory Rate 17 Blood Pressure 168/79 H Pulse Oximetry 03/10/18 04:00 03/10/18 04:26 03/10/18 06:00 Temperature 99.3 F Pulse Rate 84 87 81 Respiratory Rate 21 22 Blood Pressure 142/68 H Pulse Oximetry 96 97 03/10/18 08:00 03/10/18 09:24 03/10/18 10:00 Temperature 99.0 F Pulse Rate 92 H 74 Respiratory Rate 21 17 Blood Pressure 156/72 H Pulse Oximetry 97 98 Intake & Output 03/09/18 03/10/18 03/10/18 18:59 06:59 18:59 Intake Total 993 / 993 989 / 989 150 / 150 Output Total 1675 / 1675 825 / 825 Balance -682 / -682 164 / 164 150 / 150 Intake: IV 250 / 250 250 / 250 150 / 150 Heparin/D5W 25,000 U/250 mL 25, 250 / 250 250 / 250 000 unit In 250 ml @ 1,000 UNITS/HR 10 mls/hr IV.CONT TITRATE PRN Rx#:[id number] Levaquin 750 mg Premix Inj 150 150 / 150 ML @ 100 mls/hr IV.SIG Q24H CELINE Rx#:[id number] Tube Feeding 713 / 713 679 / 679 Tube Irrigant 30 / 30 60 / 60 Output: Urine 650 / 650 Stool 425 / 425 Urine Amount (Catheter) 600 / 600 825 / 825 Condom 600 / 600 825 / 825 Other: # Voids 5 # Incontinent Voids 1 Date of Last Bowel Movement 03/09/18 03/09/18 03/09/18 Result Diagrams: 03/08/18 04:44 03/09/18 03:22 Objective Remarks: GENERAL: 77-year-old male currently orotracheally intubated, remains off all sedation SKIN: Warm and dry. No rash HEAD: Atraumatic. Normocephalic. EYES: Pupils equal and round about 3 mm bilaterally and reactive. No scleral icterus. No injection or drainage. ENT: No nasal bleeding or discharge. Orotracheally intubated. +ET tube secretions NECK: Trachea midline. No JVD. Systolic right 09/12 carotid bruit CARDIOVASCULAR: Regular rate and rhythm. S1, S2. No S4. RESPIRATORY: Few rhonchi at the bases. now on CPAP 04/11 GASTROINTESTINAL: Abdomen soft, non-tender, nondistended. Hepatic and splenic margins not palpable. MUSCULOSKELETAL: Extremities without significant peripheral edema. NEUROLOGICAL: Partially opens eyes to stimulation. Follows commands today on right upper and lower extremity but very weakly. 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 CTA brain 02/25 revealed no acute occlusions. CTA neck with occluded left vertebral artery. Carotid ultrasound with critical right carotid artery stenosis MRI of brain with right midbrain infarct and medial left cerebellar infarct Repeat head CT 02/27, 03/02 revealed stable right brainstem and left cerebellar infarct EEG 03/01 revealed no epileptic activity. Mild encephalopathy. Neurology Dr. Oseguera. Continue ASA. Due to critical right carotid artery stenosis continue heparin. Heparin gtt stroke protocol started on 02/26. Continue timolol 0.5% 1 drop each eye twice daily and brimonidine drip 0.1% 1 drop each eye twice daily. Baclofen 10 mg 3 times daily-hold Keep head of bed at 30. Tylenol for fever CV: Essential hypertension Hyperlipidemia Right carotid artery stenosis Allow for permissive hypertension. Amlodipine 10 mg daily, lisinopril 40 mg daily on hold As needed labetalol and nicardipine drip to keep systolic blood pressure less than 220 2D echocardiogram per CVA protocol revealed EF around 50 to 55%. There is a small pericardial effusion present. . Dr. Mcneal vascular surgery consult initial recommendations follow-up 1 month Continue IV Heparin, ASA Resp: Acute respiratory failure Postop left posterior lateral muscle-sparing thoracotomy with JAYLENE lobectomy and mediastinal lymph node dissection secondary to squamous cell carcinoma the lung by Dr. Holman COPD? 4 pack years tobacco use quit 40 years ago Pneumonia Tiny right apical pneumothorax Currently on PSV 8/5-30%. Daily spontaneous breathing trials but mental status will not permit extubation, may attempt trial extubation tomorrow and transition to comfort if he does not tolerate Ventilator bundle. Albuterol aerosols every 4 hours with albuterol aerosols every 2 hours as needed dyspnea Chest tube removed 03/01 by CTS indicates patient will not want trach and PEG, but family wants to wait till 03/11/18 to see whether the patient improves-otherwise plan transition to comfort measures GI: Gastroesophageal reflux disease on omeprazole 20 mg daily at home History of EGD with dilatation? Constipation Hypoalbuminemia Tube feeds with Jevity 1.5 Pantoprazole switch to lansoprazole for GI prophylaxis Docusate sodium 100 mg twice daily, senna liquid 8.8 mg twice daily, polyethylene glycol 17 g twice daily and lactulose 30 cc 4 times daily KUB showed mild distended colon C. difficile-negative Endo: Sliding scale insulin with Accu-Cheks every 6 hours/low regimen of NovoLog to maintain euglycemia Renal: Creatinine currently within normal limits Monitor urine output, Accurate I's and O's Rodriguez catheter will be placed for accurate I's and O's in a critically ill patient Heme: Leukocytosis Normocytic anemia Monitor CBC daily. Follow trends ID: Healthcare associated pneumonia (Klebsiella/Staph aureus) Continue Levaquin 750 mg IV every 24 hours. Complete 7 days Follow-up on blood urine and sputum cultures-Klebsiella staph aureus Monitor for signs and symptomatology infection C. difficile negative Access -Utilize peripheral IV. Central line if indicated Prophylaxis -GI -pantoprazole -DVT -SCDs/pharmacological prophylaxis provided by heparin drip Level 2 Encephalopathy and decreased level of alertness secondary to brainstem infarct, sepsis will not permit extubation. indicates patient has a living will and he will not want long-term detention/rehab placement, or trach and PEG. Palliative care following DNR now. Most likely transition to comfort measures Code Status: Full
--- NOTE | 2018-03-10 12:55 | P.PNPAL ---
Reason for Visit Reason for visit: Reason for visit a. To assist with evaluation and management of symptoms including: encephalopathy, pain b. To assist medical decision maker(s) with: better understanding of current medical conditions; weighing benefits/burdens of medical treatment options; making medical treatment decisions. . Subjective Subjective/Interval History: Weekend Mr. Escobar is a 77-year-old male who underwent a left posterolateral muscle-sparing thoracotomy with a left upper lobe lobectomy and mediastinal lymph node dissection by Dr. Holman on 02/25/2018. Overnight on 02/25/18 a stroke alert was called after the patient developed left-sided weakness and facial droop. An MRI of the brain the following morning showed restricted effusion characteristic for acute infarction appear to be present involving the mid to right portion of the midbrain as well as the left vermis and medial aspect of the left cerebellar hemisphere. Echocardiogram revealed left ventricular systolic function was low normal with an estimated EF of 50-55%. An ultrasound of the carotid arteries revealed critical stenosis of the right carotid artery. Given US results, neurology recommended anticoagulation which was discussed with Dr. Holman who amenable to starting heparin. Heparin GTT stroke protocol started on 02/26/18. Follow up visit for symptom management and clarification of medical treatment goals. Patient seen and assessed in [facility] earlier this morning, room 1335. No family at bedside. Patient remain intubated on mechanical ventilation, tolerating CPAP trials this morning.. Follow-up chest x-ray on 03/08/2018 showing persistent partial consolidation of the left lower lung. Afebrile overnight. WBC was 13.2 on 03/08/2018. Most recent sputum cultures growing Klebsiella and Staph aureus; on IV Levaquin Patient arouses to verbal stimuli; weakly follows commands. Patient may not be able to protect his airway if medically extubated. CT head on 03/02/18 showed evolving brainstem and cerebellar stroke; areas of encephalomalacia in the left parietal, occipital and frontal lobes; atrophy. EEG consistent with moderate diffuse encephalopathy; no seizure activity was noted. Patient has completed a living will that states he would not want life prolonging procedures if there was no reasonable expectation of his recovery from physical or mental disability; family has been considering compassionate withdrawal of artificial life support. Palliative care spoke with patient's at bedside. She was appropriately tearful stating, "that's not my anymore. It's just his shell. He wouldn't want any of this." Family considering compassionate withdrawal of artificial life support on , 03/11. . Family/Friend Interactions: Attempted to contact via telephone to provide clinical update and review medical treatment goals of care. Message left on voicemail with palliative contact information. Discussed with nurse, Shyann. Requested to be notified if the family arrives at the bedside. Advance Directives Living Will: Copy in medical record Health Care Surrogate: Copy in medical record Advance Directives Date on File: 03/26/09 Health Care Surrogate Name and Number: Primary: Janna Escobar: [phone] Alt: Arabella Xie: [phone] Documented care wishes:: A living will and healthcare surrogate designation form was completed on 2008. Documents are accessible in the patient's paper chart and have been faxed to HIM to be scanned into the patient's EMR. . Significant change in goals:: Family considering withdrawal of artificial life support tomorrow 03/11/2018 Objective Vital Signs: Vital Signs 03/09/18 14:00 03/09/18 16:00 03/09/18 17:08 Temperature 99.1 F Pulse Rate 76 76 94 H Respiratory Rate 20 22 Blood Pressure 157/71 H Pulse Oximetry 97 100 03/09/18 18:00 03/09/18 19:42 03/09/18 20:00 Temperature 99.6 F Pulse Rate 81 87 80 Respiratory Rate 20 16 Blood Pressure 144/67 H Pulse Oximetry 98 97 03/09/18 22:00 03/10/18 00:00 03/10/18 00:37 Temperature 99.2 F Pulse Rate 78 76 83 Respiratory Rate 17 Blood Pressure 168/79 H Pulse Oximetry 03/10/18 02:00 03/10/18 04:00 03/10/18 04:26 Temperature 99.3 F Pulse Rate 78 84 87 Respiratory Rate 21 22 Blood Pressure 142/68 H Pulse Oximetry 96 97 03/10/18 06:00 03/10/18 08:00 03/10/18 09:24 Temperature 99.0 F Pulse Rate 81 92 H Respiratory Rate 21 17 Blood Pressure 156/72 H Pulse Oximetry 97 98 03/10/18 10:00 03/10/18 12:00 Temperature Pulse Rate 74 80 Respiratory Rate Blood Pressure Pulse Oximetry Intake & Output 03/09/18 03/10/18 03/10/18 18:59 06:59 18:59 Intake Total 993 / 993 989 / 989 150 / 150 Output Total 1675 / 1675 825 / 825 Balance -682 / -682 164 / 164 150 / 150 Intake: IV 250 / 250 250 / 250 150 / 150 Heparin/D5W 25,000 U/250 mL 25, 250 / 250 250 / 250 000 unit In 250 ml @ 1,000 UNITS/HR 10 mls/hr IV.CONT TITRATE PRN Rx#:[id number] Levaquin 750 mg Premix Inj 150 150 / 150 ML @ 100 mls/hr IV.SIG Q24H CELINE Rx#:[id number] Tube Feeding 713 / 713 679 / 679 Tube Irrigant 30 / 30 60 / 60 Output: Urine 650 / 650 Stool 425 / 425 Urine Amount (Catheter) 600 / 600 825 / 825 Condom 600 / 600 825 / 825 Other: # Voids 5 # Incontinent Voids 1 Date of Last Bowel Movement 03/09/18 03/09/18 03/09/18 Physical Exam: CONSTITUTIONAL/GENERAL: This is an elderly, male patient, currently intubated on mechanical ventilation TUBES/LINES/DRAINS: PIV 3, ETT, NGT, Rodriguez catheter, SCDs SKIN: No jaundice, rashes, or lesions. Ecchymoses on upper extremities. Skin temperature appropriate. Not diaphoretic. HEAD: Atraumatic. Normocephalic. EYES: Pupils equal and round and reactive. No scleral icterus. No injection or drainage. Fundi not examined. ENT: Hearing grossly normal. Nose without bleeding or purulent drainage. NECK: Trachea midline. Supple, nontender. No palpable thyroid enlargement or nodularity. CARDIOVASCULAR: Regular rate and rhythm without murmurs, gallops, or rubs. No JVD. Peripheral pulses symmetric. RESPIRATORY/CHEST: Intubated on mechanical ventilation. No accessory muscle use. Breath sounds diminished on the left. No wheezes, rales, or rhonchi. GASTROINTESTINAL: Abdomen soft, non-tender, nondistended. No guarding. Bowel sounds present. GENITOURINARY: Without palpable bladder distension. Rodriguez catheter in place- draining staci urine MUSCULOSKELETAL: Extremities without clubbing, cyanosis, or edema. No mottling or clubbing. LYMPHATICS: No palpable cervical or supraclavicular adenopathy. NEUROLOGICAL: Open eyes to verbal stimuli; weakly follows commands PSYCHIATRIC: No anxiety/agitation noted. . Diagnostic Tests Laboratory: Laboratory Results - last 72 hr 03/08/18 03/08/18 03/08/18 04:44 04:44 04:44 WBC 13.2 H RBC 3.44 L Hgb 9.6 L Hct 29.2 L MCV 84.8 MCH 28.0 MCHC 33.1 RDW 14.4 Plt Count 370 MPV 9.4 APTT 55.1 H D Sodium 143 Potassium 3.3 L Chloride 109 H Carbon Dioxide 26.0 Anion Gap 8 BUN 16 Creatinine 0.86 Estimated GFR 86 L Random Glucose 127 H Calcium 8.1 L Total Bilirubin 0.3 AST 98 H ALT 94 H Alkaline Phosphatase 127 H Ammonia Total Protein 6.6 Albumin 1.5 L 03/08/18 03/09/18 03/09/18 10:25 03:22 03:22 WBC RBC Hgb Hct MCV MCH MCHC RDW Plt Count MPV APTT 46.7 H Sodium Potassium 3.2 L Chloride Carbon Dioxide Anion Gap BUN Creatinine Estimated GFR Random Glucose Calcium Total Bilirubin AST ALT Alkaline Phosphatase Ammonia 34 H Total Protein Albumin 03/10/18 03:44 WBC RBC Hgb Hct MCV MCH MCHC RDW Plt Count MPV APTT 40.8 H Sodium Potassium Chloride Carbon Dioxide Anion Gap BUN Creatinine Estimated GFR Random Glucose Calcium Total Bilirubin AST ALT Alkaline Phosphatase Ammonia Total Protein Albumin Result Diagrams: 03/08/18 04:44 03/09/18 03:22 Procedures: 02/26/2018: Intubation Assessment and Plan - Disease Oriented Problem List (1) Carotid stenosis (2) CVA (cerebral vascular accident) (3) Respiratory failure requiring intubation (4) Status post lobectomy of lung (5) Status post thoracotomy (6) Pneumonia - Symptom Scale (1) Encephalopathy 0-10 Scale: Unable to quantify (2) Pain 0-10 Scale: Unable to quantify Pertinent Non-Medical Issues: Psychosocial:Patient is originally from [facility]; his is from [place]. They have been for nearly 55 years. Together they have 2 children (Arabella and Toño) and 3 grandchildren. Arabella lives in [place] and Toño lives in [place]. The patient and his family moved to the area approximately 48 years ago. 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 Spiritual: [employer] Legal: A living will and healthcare surrogate designation form was completed on 03/26/2009. Documents are accessible in the patient's paper chart and have been faxed to HIM to be scanned into the patient's EMR. Patient's , Janna Escobar , is designated as the healthcare surrogate decision maker. DaughterArabella is designated as the alternate healthcare surrogate decision maker. Ethical issues impacting care: No known ethical issues at this time. . Important Contacts: Zoraida Escobar, : [phone] Arabella Xie, daughter: [phone] . Prognosis: 77 year old who suffered and brainstem and cerebellar CVA status post thoracotomy with left upper lobe lobectomy and lymph node dissection. Preop studies revealed severe, asymptomatic right-sided carotid stenosis. Given patient's advanced age and multiple comorbid conditions; he is at risk for setbacks and complications. . Code Status: No Code DNR (No reintubation) Plan: NO CODE * A living will and healthcare surrogate designation form was completed on 2008. Documents are accessible in the patient's paper chart and have been faxed to HIM to be scanned into the patient's EMR * Decision-making: Patient currently does not have insight or judgment related to his medical conditions. Patient's , Janna Escobar, is designated as the healthcare surrogate decision maker. DaughterArabella is designated as the alternate healthcare surrogate decision maker. * Palliative care spoke with patient's at bedside. She was appropriately tearful stating, "that's not my anymore. It's just his shell. he wouldn' t want any of this." Family considering withdrawing artificial life support with transition to comfort focused care tomorrow 03/11/2018 * Discussed this patient with Dr. Blakely and RN (Shyann). * Attempted to contact via telephone to provide clinical update and review medical treatment goals of care. Message left on voicemail with palliative contact information. Discussed with nurse, Shyann. Requested to be notified if the family arrives at the bedside. * Symptom management-encephalopathy: status post brainstem and cerebellar CVA; severe right sided carotid stenosis. Patient opens eyes to verbal stimuli. Weakly follows commands with right upper and lower extremity. Concerned the patient may not be able to protect his airway if medically extubated. CT head on 03/02/18 showed evolving brainstem and cerebellar stroke; areas of encephalomalacia in the left parietal, occipital and frontal lobes; atrophy. EEG consistent with moderate diffuse encephalopathy; no seizure activity was noted. * Symptom management-pain: Multifactoral. Possible contributing factors include recent thoracotomy, infection, impaired skin integrity, invasive lines, immobility, bedbound status. Patient showing no signs or symptoms of nonverbal pain on exam. PRN [place] 5/325 is available every 3 hours PRN for pain scale of 3 -5; last administered on 03/08/2018. Palliative care will monitor PRN requirements and make recommendations as indicated * Palliative care will follow the patient throughout his hospitalization to establish trust, assist with symptom management and clarification of medical treatment goals. . Attestation Attestation: To help prompt me to consider important information that might be impacting today's encounter and assessment, information from prior notes written by myself or my colleagues may have been "brought forward" into today's note. My signature on this note, however, is an attestation that I personally performed the exam, history, and/or decision-making noted today, and, unless otherwise indicated, the interactions with patient, family, and staff as well as the review of records all occurred today. I also attest that the listed assessment and stated plan reflect my best clinical judgment today based on the combination of historical information, prior notes, and today's exam/ interactions. When time spent is documented, it refers only to time spent today by the signer, or if indicated, combined time spent today by collaborating physician/nurse practitioner.
[2018-03-11] MEDS: Oral Hygiene Kit OROPHARYNG SCH ×3 (02:51→11:39)
[2018-03-11 07:03] LABS: Hemoglobin 8.8 gm/dL (13.0-17.0); Mean Corpuscular HGB Conc 32.5 % (32.0-36.0); Mean Corpuscular Hemoglobin 27.8 pg (27.0-34.0); Mean Corpuscular Volume 85.5 fL (80.0-100.0); Mean Platelet Volume 9.9 fL (7.0-11.0); Platelet Count 407 th/mm3 (150-450); Red Blood Count 3.15 mil/mm3 (4.50-5.90); Red Cell Distribution Width 14.6 % (11.6-17.2); White Blood Count 19.4 th/mm3 (4.0-11.0)
[2018-03-11 07:20] LABS: Albumin 1.5 g/dL (3.4-5.0); Anion Gap 9 meq/L (5-15); Aspartate Aminotransferase 55 U/L (15-37); Blood Urea Nitrogen 14 mg/dL (7-18); Calcium 7.8 mg/dL (8.5-10.1); Carbon Dioxide 25.8 meq/L (21.0-32.0); Chloride 107 meq/L (98-107); Glomerular Filtration Rate Greater Than 89 mL/min (>89); Glucose,Random 131 mg/dL (74-106); Potassium 4.6 meq/L (3.5-5.1)
[2018-03-11 07:23] LABS: Alanine Aminotransferase 73 U/L (12-78); Alkaline Phosphatase 80 U/L (45-117); Sodium 142 meq/L (136-145); Total Protein 6.5 g/dL (6.4-8.2)
[2018-03-11] MEDS: Chlorhexidine 0.12% Oral Kit 15 ML UDC SWISH-SPIT SCH (07:47)
[2018-03-11] MEDS: BRIMONIDINE 0.1% EACH EYE SCH (08:00)
[2018-03-11] MEDS: OPTH EACH EYE SCH (08:00)
[2018-03-11] MEDS: Docusate Sodium Liq 100 MG/10 ML UDC PO SCH (08:00)
[2018-03-11] MEDS: Artificial Tears Opth Oint 3.5 GM Tube EACH EYE SCH (08:00)
[2018-03-11] MEDS: Polyethylene Glycol 3350 17 GM Packet NG/OG SCH (08:00)
[2018-03-11] MEDS: Sennosides Liq 8.8 MG/5 ML UDC PO SCH (08:01)
[2018-03-11] MEDS: Timolol 0.5% Drops 5 ML Bottle EACH EYE SCH (08:01)
--- NOTE | 2018-03-11 11:41 | P.PNCC ---
Subjective Subjective Remarks/Hospital Course: This is a 77-year-old male. Date of admission 02/25/2018. Date of consultation 02/25/2018. 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 During the workup patient was noted to have carotid artery stenosis by Dr. Donahue. Patient has known history of left upper lobe lung cancer/invasive squamous cell carcinoma type. Today patient with a left posterolateral muscle-sparing thoracotomy with a left upper lobe lobectomy and mediastinal lymph node dissection by Dr. Holman. 1100 cc crystalloid. 20 cc EBL. 250 cc urine output. Patient received 1 g of vancomycin during this procedure. Patient also had on preoperative studies found to have asymptomatic severe carotid stenosis. Was evaluated Dr. Mcneal today. Recommend follow-up in 1 month. At about 11:00 pm on 02/25, patient had acute onset of a fascia, left greater than right extremity weakness and facial droop. Patient was aphasic and dysarthric. He was intermittently apneic. Was able to follow commands with right upper extremity and lower extremity greater than left lower extremity and upper extremity. A stroke alert was called. CT brain revealed old right parieto-occipital strokes but no acute findings. CT angiogram showed no obvious occlusion. Discussed with Dr. Herron who recommended aspirin per rectum with neurology consult in a.m. along with MRI brain. Dr. Flynn is made aware these findings. Due to his tenuous respiratory status patient was electively intubated using 20 mg etomidate and 50 mg rocuronium. 02/26: remains sedated, orally intubated on mechanical ventilation. 02/27: Remains drowsy, apneic episodes yesterday with CPAP trials. Remains orally intubated on mechanical ventilation. MRI brain revealed right midbrain as well as left medial cerebellar infarcts. CTA brain with right critical carotid artery stenosis and nonvisualized left vertebral artery. Patient appears to have had a posterior circulation stroke probably embolic from left vertebral artery. 02/28: Resting comfortably in bed in no acute distress. T-max 99.1. Arousable and attempts to follow commands with right upper and lower extremities. No bowel movement since admission. Tube feeds currently at 30 cc an hour 03/01: T-max 103. Currently 100.9. Potassium chloride powder 60 mEq 1 this a.m. Being replaced. Tube feeds at 20 cc an hour. No bowel movement. Neurological exam unchanged. 03/02: patient remains unresponsive with minimal withdrawal to pain. Tmax 102, WBC increased to 19.7. CXR probable LLL pneumonia. CT head evolving brainstem and cerebellar stroke. Encephalopathy may be metabolic, EEG ordered to rule out subclinical seizures. Will start Azactam, Vanc, Flagyl to cover for severe sepsis/probable pneumonia 03/03: Patient remains intubated off sedation T-max 101.7 sputum culture with GNR WBC count is 20.5. Patient developing diarrhea will check C. difficile also. Mental status is slightly improved weakly follows commands on right upper and lower extremities. EEG moderate encephalopathy no seizures 03/04: Remains off all sedation. No spontaneous eye opening but weakly follows commands on right upper and lower extremity, no spontaneous movements on the left. Sputum culture growing Klebsiella and staph aureus. tells me that patient has previously indicated no prolonged life support. She is of the opinion that patient would not have wanted tracheostomy and long-term mcfp placement 03/05: Patient appears more lethargic today not following commands remains off all sedation no fever reported. Chest x-ray shows persistent left lower lobe infiltrate, tiny left apical pneumothorax. Sputum growing pansensitive Klebsiella and staph aureus on adequate coverage. Will consolidate antibiotic to Levaquin 03/06: Remains intubated off all sedation opens eyes to stimulation. Follow commands weakly on right upper and lower extremity and withdraws on the left side. No significant improvement in alertness 03/07: Remains intubated and remains encephalopathic. Off all sedation. Did not follow commands at this moment but previously was following. 03/08: No changes clinically no acute events reported. Still quite encephalopathic though opens eyes partially and very weakly follows commands on the right side. Continues to withdrawal 03/09: Neuro exam remains essentially unchanged patient remains very weak but able to follow commands very weakly on the right upper and lower extremity. Flaccid on the left side. 03/10: Patient is slightly more awake on my exam, again very weakly follows commands. I am worried that patient will not be able to protect airway if extubated. According to palliative care family still planning on withdrawal of support and comfort measures tomorrow 03/11/2018 SUBJECTIVE: 03/11: Neurological exam unchanged with with movements right upper lower extremity.. T-max 99.5. Positive BM. Objective Vital Signs / I&O: Vital Signs 03/10/18 12:00 03/10/18 14:00 03/10/18 16:00 Temperature 98 F 98.2 F Pulse Rate 80 92 H 87 Respiratory Rate 18 21 Blood Pressure 154/70 H 185/83 H Pulse Oximetry 98 100 03/10/18 17:22 03/10/18 18:00 03/10/18 20:00 Temperature 98.7 F Pulse Rate 78 80 Respiratory Rate 18 22 Blood Pressure 129/62 Pulse Oximetry 100 98 03/10/18 21:41 03/10/18 22:00 03/11/18 00:00 Temperature 98.9 F Pulse Rate 81 78 Respiratory Rate 17 23 Blood Pressure 150/78 H Pulse Oximetry 99 99 03/11/18 00:20 03/11/18 02:00 03/11/18 03:07 Temperature Pulse Rate 90 Respiratory Rate 21 18 Blood Pressure Pulse Oximetry 97 97 03/11/18 04:00 03/11/18 06:00 03/11/18 08:00 Temperature 98.9 F 99.5 F Pulse Rate 80 81 89 Respiratory Rate 22 18 Blood Pressure 120/56 L 124/58 L Pulse Oximetry 97 97 03/11/18 10:00 Temperature Pulse Rate 91 H Respiratory Rate Blood Pressure Pulse Oximetry Intake & Output 03/10/18 03/11/18 03/11/18 18:59 06:59 18:59 Intake Total 1111 / 1111 1000 / 1000 Output Total 1250 / 1250 1650 / 1650 Balance -139 / -139 -650 / -650 Weight 83.3 kg Intake: IV 300 / 300 250 / 250 Heparin/D5W 25,000 U/250 mL 25, 250 / 250 000 unit In 250 ml @ 1,000 UNITS/HR 10 mls/hr IV.CONT TITRATE PRN Rx#:[id number] Levaquin 750 mg Premix Inj 150 300 / 300 ML @ 100 mls/hr IV.SIG Q24H CELINE Rx#:[id number] Tube Feeding 511 / 511 630 / 630 Tube Irrigant 300 / 300 120 / 120 Output: Urine 1650 / 1650 Stool 0 / 0 Urine Amount (Catheter) 1250 / 1250 Condom 1250 / 1250 Other: Date of Last Bowel Movement 03/09/18 03/10/18 03/10/18 Result Diagrams: 03/11/18 06:31 03/11/18 06:31 Imaging: ITS Impressions Chest X-Ray 03/08/18 06:00 CONCLUSION: Persistent partial consolidation left lower lung. Objective Remarks: GENERAL: 77-year-old male currently orotracheally intubated SKIN: Warm and dry. No rash HEAD: Atraumatic. Normocephalic. EYES: Pupils equal and round about 3 mm bilaterally and reactive. No scleral icterus. No injection or drainage. ENT: No nasal bleeding or discharge. Orotracheally intubated. +ET tube secretions NECK: Trachea midline. No JVD. Systolic right 1/6 carotid bruit CARDIOVASCULAR: Regular rate and rhythm. S1, S2. No S4. RESPIRATORY: Coarse crackles appreciated throughout lung peralta anteriorly posteriorly no wheezing GASTROINTESTINAL: Abdomen soft, non-tender, nondistended. Hepatic and splenic margins not palpable. MUSCULOSKELETAL: Extremities without significant peripheral edema. NEUROLOGICAL: Partially opens eyes to stimulation. Follows commands today on right upper and lower extremity but very weakly. Withdraws to noxious stimuli 4 Assessment and Plan - Assessment and Plan Plan: Neuro/Psych: Acute ischemic CVA involving right midbrain and left medial cerebellar region Metabolic encephalopathy History of right posterior and occipital CVA Critical right carotid artery stenosis, Occluded left vertebral artery Alcohol use 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 CTA brain 02/25 revealed no acute occlusions. CTA neck with occluded left vertebral artery. Carotid ultrasound with critical right carotid artery stenosis MRI of brain with right midbrain infarct and medial left cerebellar infarct Repeat head CT 02/27, 03/02 revealed stable right brainstem and left cerebellar infarct EEG 03/01 revealed no epileptic activity. Mild encephalopathy. Neurology Dr. Oseguera. Continue ASA. Due to critical right carotid artery stenosis continue heparin. Heparin gtt stroke protocol started on 02/26. Continue timolol 0.5% 1 drop each eye twice daily and brimonidine drip 0.1% 1 drop each eye twice daily. Baclofen 10 mg 3 times daily-hold Keep head of bed at 30. Acetaminophen 650 mg every 6 hours as needed fever CV: Essential hypertension Hyperlipidemia Right carotid artery stenosis Allow for permissive hypertension. Amlodipine 10 mg daily, lisinopril 40 mg daily on hold As needed labetalol and nicardipine drip to keep systolic blood pressure less than 220 2D echocardiogram per CVA protocol revealed EF around 50 to 55%. There is a small pericardial effusion present. . Dr. Mcneal vascular surgery consult initial recommendations follow-up 1 month Continue IV Heparin, not on ASA Resp: Acute respiratory failure Postop left posterior lateral muscle-sparing thoracotomy with JAYLENE lobectomy and mediastinal lymph node dissection secondary to squamous cell carcinoma the lung by Dr. Holman COPD? 4 pack years tobacco use quit 40 years ago Pneumonia Tiny right apical pneumothorax Currently on PSV 8/5-30%. Daily spontaneous breathing trials but mental status will not permit extubation, may attempt trial extubation tomorrow and transition to comfort if he does not tolerate Ventilator bundle. Albuterol aerosols every 4 hours with albuterol aerosols every 2 hours as needed dyspnea Chest tube removed 03/01 by CTS indicates patient will not want trach and PEG, but family wants to wait till 03/11/18 to see whether the patient improves-otherwise plan transition to comfort measures GI: Gastroesophageal reflux disease on omeprazole 20 mg daily at home History of EGD with dilatation? Constipation Hypoalbuminemia Tube feeds with Jevity 1.5 at goal rate Lansoprazole for GI prophylaxis Docusate sodium 100 mg twice daily, senna liquid 8.8 mg twice daily, polyethylene glycol 17 g twice daily and lactulose 30 cc 4 times daily C. difficile negative Endo: Sliding scale insulin with Accu-Cheks every 6 hours/low regimen of NovoLog to maintain euglycemia Renal: Creatinine currently within normal limits Monitor urine output, Accurate I's and O's Rodriguez catheter will be placed for accurate I's and O's in a critically ill patient Heme: Leukocytosis Normocytic anemia Monitor CBC daily. Follow trends ID: Healthcare associated pneumonia (Klebsiella/Staph aureus) Continue Levaquin 750 mg IV every 24 hours. Complete 7 days Follow-up on blood urine and sputum cultures-Klebsiella staph aureus Monitor for signs and symptomatology infection C. difficile negative Access -Utilize peripheral IV. Central line if indicated Prophylaxis -GI -lansoprazole -DVT -SCDs/pharmacological prophylaxis provided by heparin drip Level 2
[2018-03-11] MEDS ORDERED: Dextrose 50% in Water 50 ML Vial IV.PUSH PRN (11:45)
[2018-03-11] MEDS ORDERED: Insulin NovoLOG Aspart Correctional Sugar Inj SQ SCH (12:00)
[2018-03-11] MEDS ORDERED: Acetaminophen 650 MG Supp RECTAL PRN (13:00)
[2018-03-11] MEDS ORDERED: Hyoscyamine Inj 0.5 MG/ML Ampul IV.PUSH ONE (13:00)
[2018-03-11] MEDS ORDERED: Bisacodyl 10 MG Supp RECTAL PRN (13:00)
[2018-03-11] MEDS ORDERED: Morphine Sulfate Inj 8 MG/ML Vial IV.PUSH PRN (13:00)
[2018-03-11] MEDS ORDERED: Morphine Inj 4 MG/ML Vial IV.PUSH ONE (13:00)
[2018-03-11] MEDS ORDERED: Morphine Inj 4 MG/ML Vial IV.PUSH PRN (13:00)
[2018-03-11] MEDS ORDERED: Morphine Sulfate Inj 8 MG/ML Vial IV.PUSH ONE (13:00)
[2018-03-11] MEDS ORDERED: Hyoscyamine Inj 0.5 MG/ML Ampul IV.PUSH PRN (13:30)
--- NOTE | 2018-03-11 14:20 | P.PNPAL ---
Reason for Visit Reason for visit: Reason for visit a. To assist with evaluation and management of symptoms including: encephalopathy, pain b. To assist medical decision maker(s) with: better understanding of current medical conditions; weighing benefits/burdens of medical treatment options; making medical treatment decisions. . Subjective Subjective/Interval History: Weekend Mr. Escobar is a 77-year-old male who underwent a left posterolateral muscle-sparing thoracotomy with a left upper lobe lobectomy and mediastinal lymph node dissection by Dr. Holman on 02/25/2018. Overnight on 02/25/18 a stroke alert was called after the patient developed left-sided weakness and facial droop. An MRI of the brain the following morning showed restricted effusion characteristic for acute infarction appear to be present involving the mid to right portion of the midbrain as well as the left vermis and medial aspect of the left cerebellar hemisphere. Echocardiogram revealed left ventricular systolic function was low normal with an estimated EF of 50-55%. An ultrasound of the carotid arteries revealed critical stenosis of the right carotid artery. Given US results, neurology recommended anticoagulation which was discussed with Dr. Holman who amenable to starting heparin. Heparin GTT stroke protocol started on 02/26/18. Follow up visit for symptom management and clarification of medical treatment goals. Patient seen and assessed in [facility] earlier this morning, room 1335. A organ tuner electronic [place] is at the bedside with the family. Palliative care met with the patient's and children in the family conference room. Family has decided to honor the patient's will and request compassionate withdrawal of artificial life support. Anticipatory guidance was provided. Signed exhibits B and C are on the patient's chart. Comfort medications have been ordered. Advance Directives Living Will: Copy in medical record Health Care Surrogate: Copy in medical record Advance Directives Date on File: 03/26/09 Health Care Surrogate Name and Number: Primary: Janna Escobar: [phone] Alt: Arabella Xie: [phone] Documented care wishes:: A living will and healthcare surrogate designation form was completed on 2008. Documents are accessible in the patient's paper chart and have been faxed to HIM to be scanned into the patient's EMR. . Significant change in goals:: Plan compassionate withdrawal of artificial life support this afternoon. Objective Vital Signs: Vital Signs 03/10/18 16:00 03/10/18 17:22 03/10/18 18:00 Temperature 98.2 F Pulse Rate 87 78 Respiratory Rate 21 18 Blood Pressure 185/83 H Pulse Oximetry 100 100 03/10/18 20:00 03/10/18 21:41 03/10/18 22:00 Temperature 98.7 F Pulse Rate 80 81 Respiratory Rate 22 17 Blood Pressure 129/62 Pulse Oximetry 98 99 03/11/18 00:00 03/11/18 00:20 03/11/18 02:00 Temperature 98.9 F Pulse Rate 78 90 Respiratory Rate 23 21 Blood Pressure 150/78 H Pulse Oximetry 99 97 03/11/18 03:07 03/11/18 04:00 03/11/18 06:00 Temperature 98.9 F Pulse Rate 80 81 Respiratory Rate 18 22 Blood Pressure 120/56 L Pulse Oximetry 97 97 03/11/18 08:00 03/11/18 10:00 03/11/18 12:00 Temperature 99.5 F Pulse Rate 89 91 H 79 Respiratory Rate 18 Blood Pressure 124/58 L Pulse Oximetry 97 Intake & Output 03/10/18 03/11/18 03/11/18 18:59 06:59 18:59 Intake Total 1111 / 1111 1000 / 1000 900 / 900 Output Total 1250 / 1250 1650 / 1650 Balance -139 / -139 -650 / -650 900 / 900 Weight 83.3 kg Intake: IV 300 / 300 250 / 250 900 / 900 Heparin/D5W 25,000 U/250 mL 25, 250 / 250 250 / 250 000 unit In 250 ml @ 1,000 UNITS/HR 10 mls/hr IV.CONT TITRATE PRN Rx#:[id number] LR 1000 mL Inj 1,000 ML @ 30 500 / 500 mls/hr IV.SIG .Q24H CELINE Rx#: [id number] Levaquin 750 mg Premix Inj 150 300 / 300 150 / 150 ML @ 100 mls/hr IV.SIG Q24H CELINE Rx#:[id number] Tube Feeding 511 / 511 630 / 630 Tube Irrigant 300 / 300 120 / 120 Output: Urine 1650 / 1650 Stool 0 / 0 Urine Amount (Catheter) 1250 / 1250 Condom 1250 / 1250 Other: Date of Last Bowel Movement 03/09/18 03/10/18 03/10/18 Physical Exam: CONSTITUTIONAL/GENERAL: This is an elderly, male patient, currently intubated on mechanical ventilation TUBES/LINES/DRAINS: PIV 3, ETT, NGT, Rodriguez catheter, SCDs SKIN: No jaundice, rashes, or lesions. Ecchymoses on upper extremities. Skin temperature appropriate. Not diaphoretic. HEAD: Atraumatic. Normocephalic. EYES: Pupils equal and round and reactive. No scleral icterus. No injection or drainage. Fundi not examined. ENT: Hearing grossly normal. Nose without bleeding or purulent drainage. Tongue is swollen NECK: Trachea midline. Supple, nontender. No palpable thyroid enlargement or nodularity. CARDIOVASCULAR: Regular rate and rhythm without murmurs, gallops, or rubs. No JVD. Peripheral pulses symmetric. RESPIRATORY/CHEST: Intubated on mechanical ventilation. No accessory muscle use. Breath sounds diminished on the left. No wheezes, rales, or rhonchi. GASTROINTESTINAL: Abdomen soft, non-tender, nondistended. No guarding. Bowel sounds present. GENITOURINARY: Without palpable bladder distension. Rodriguez catheter in place- draining staci urine MUSCULOSKELETAL: Extremities without clubbing, cyanosis, or edema. No mottling or clubbing. LYMPHATICS: No palpable cervical or supraclavicular adenopathy. NEUROLOGICAL: Does not arouse to verbal stimuli on exam PSYCHIATRIC: No anxiety/agitation noted. . Diagnostic Tests Laboratory: Laboratory Results - last 72 hr 03/09/18 03/09/18 03/10/18 03:22 03:22 03:44 WBC RBC Hgb Hct MCV MCH MCHC RDW Plt Count MPV APTT 46.7 H 40.8 H Sodium Potassium 3.2 L Chloride Carbon Dioxide Anion Gap BUN Creatinine Estimated GFR Random Glucose Calcium Total Bilirubin AST ALT Alkaline Phosphatase Total Protein Albumin 03/10/18 03/11/18 03/11/18 21:20 06:31 06:31 WBC 19.4 H RBC 3.15 L Hgb 8.8 L Hct 27.0 L MCV 85.5 MCH 27.8 MCHC 32.5 RDW 14.6 Plt Count 407 MPV 9.9 APTT Sodium 142 Potassium 4.6 D 4.6 Chloride 107 Carbon Dioxide 25.8 Anion Gap 9 BUN 14 Creatinine 0.82 Estimated GFR Greater than 89 Random Glucose 131 H Calcium 7.8 L Total Bilirubin 0.3 AST 55 H ALT 73 Alkaline Phosphatase 80 Total Protein 6.5 Albumin 1.5 L 03/11/18 06:31 WBC RBC Hgb Hct MCV MCH MCHC RDW Plt Count MPV APTT 46.8 H Sodium Potassium Chloride Carbon Dioxide Anion Gap BUN Creatinine Estimated GFR Random Glucose Calcium Total Bilirubin AST ALT Alkaline Phosphatase Total Protein Albumin Result Diagrams: 03/11/18 06:31 03/11/18 06:31 Procedures: 02/26/2018: Intubation Assessment and Plan - Disease Oriented Problem List (1) Carotid stenosis (2) CVA (cerebral vascular accident) (3) Respiratory failure requiring intubation (4) Status post lobectomy of lung (5) Status post thoracotomy (6) Pneumonia - Symptom Scale (1) Encephalopathy 0-10 Scale: Unable to quantify (2) Pain 0-10 Scale: Unable to quantify Pertinent Non-Medical Issues: Psychosocial:Patient is originally from [place]; his is from [place]. They have been for nearly 55 years. Together they have 2 children (Arabella and Toño) and 3 grandchildren. Arabella lives in [place] and Toño lives in [place]. The patient and his family moved to the area approximately 48 years ago. 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 Spiritual: Evangelical [employer] Legal: A living will and healthcare surrogate designation form was completed on 03/26/2009. Documents are accessible in the patient's paper chart and have been faxed to HIM to be scanned into the patient's EMR. Patient's , Janna Escobar , is designated as the healthcare surrogate decision maker. Daughter, Arabella is designated as the alternate healthcare surrogate decision maker. Ethical issues impacting care: No known ethical issues at this time. . Important Contacts: Zoraida Escobar, : [phone] Arabella Xie, daughter: [phone] . Prognosis: 77 year old who suffered and brainstem and cerebellar CVA status post thoracotomy with left upper lobe lobectomy and lymph node dissection. Preop studies revealed severe, asymptomatic right-sided carotid stenosis. Given patient's advanced age and multiple comorbid conditions; he is at risk for setbacks and complications. . Code Status: No Code DNR (No reintubation) Plan: NO CODE * A living will and healthcare surrogate designation form was completed on 2008. Documents are accessible in the patient's paper chart and have been faxed to HIM to be scanned into the patient's EMR * Decision-making: Patient currently does not have insight or judgment related to his medical conditions. Patient's , Janna Escobar, is designated as the healthcare surrogate decision maker. Daughter, Arabella is designated as the alternate healthcare surrogate decision maker. * Family has decided to honor the patient's living will. They are requesting compassionate withdrawal of artificial life support and transition to comfort focused care. * Discussed this patient with Dinesh and RN (Shyann). * Anticipatory guidance was provided. Signed exhibits B and C are on the patient's chart. * Comfort medication have been ordered. * Symptom management-encephalopathy: status post brainstem and cerebellar CVA; severe right sided carotid stenosis. Patient opens eyes to verbal stimuli. Weakly follows commands with right upper and lower extremity. Concerned the patient may not be able to protect his airway if medically extubated. CT head on 03/02/18 showed evolving brainstem and cerebellar stroke; areas of encephalomalacia in the left parietal, occipital and frontal lobes; atrophy. EEG consistent with moderate diffuse encephalopathy; no seizure activity was noted. * Symptom management-pain: Multifactoral. Possible contributing factors include recent thoracotomy, infection, impaired skin integrity, invasive lines, immobility, bedbound status. Patient showing no signs or symptoms of nonverbal pain on exam. PRN Laie 5/325 is available every 3 hours PRN for pain scale of 3 -5; last administered on 03/08/2018. Palliative care will monitor PRN requirements and make recommendations as indicated. Attestation Attestation: To help prompt me to consider important information that might be impacting today's encounter and assessment, information from prior notes written by myself or my colleagues may have been "brought forward" into today's note. My signature on this note, however, is an attestation that I personally performed the exam, history, and/or decision-making noted today, and, unless otherwise indicated, the interactions with patient, family, and staff as well as the review of records all occurred today. I also attest that the listed assessment and stated plan reflect my best clinical judgment today based on the combination of historical information, prior notes, and today's exam/ interactions. When time spent is documented, it refers only to time spent today by the signer, or if indicated, combined time spent today by collaborating physician/nurse practitioner.
--- NOTE | 2018-03-11 14:35 | P.DN ---
Discharge Sum: Prov - Provider Primary care physician: MANUEL TURCIOS Admitting clinician: UNKNOWN Attending physician on admission: Wero Montiel Consults: Neurology Admission to cardiothoracic surgery Pronouncing clinician: Wero Montiel Discharge Sum: Diag - PCOD Cause of : Cardiac arrest Discharge Sum: Summary - Date and Time Date of admission: 02/25/18 05:49 Date of : 03/11/18 Time of : 14:30 - Summary Details: Neuro/Psych: Acute ischemic CVA involving right midbrain and left medial cerebellar region Metabolic encephalopathy History of right posterior and occipital CVA Critical right carotid artery stenosis, Occluded left vertebral artery Alcohol use 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 CTA brain 02/25 revealed no acute occlusions. CTA neck with occluded left vertebral artery. Carotid ultrasound with critical right carotid artery stenosis MRI of brain with right midbrain infarct and medial left cerebellar infarct Repeat head CT 02/27, 03/02 revealed stable right brainstem and left cerebellar infarct EEG 03/01 revealed no epileptic activity. Mild encephalopathy. Neurology Dr. Oseguera. Continue ASA. Due to critical right carotid artery stenosis continue heparin. Heparin gtt stroke protocol started on 02/26. Continue timolol 0.5% 1 drop each eye twice daily and brimonidine drip 0.1% 1 drop each eye twice daily. Baclofen 10 mg 3 times daily-hold Keep head of bed at 30. Acetaminophen 650 mg every 6 hours as needed fever CV: Essential hypertension Hyperlipidemia Right carotid artery stenosis Allow for permissive hypertension. Amlodipine 10 mg daily, lisinopril 40 mg daily on hold As needed labetalol and nicardipine drip to keep systolic blood pressure less than 220 2D echocardiogram per CVA protocol revealed EF around 50 to 55%. There is a small pericardial effusion present. . Dr. Mcneal vascular surgery consult initial recommendations follow-up 1 month Continue IV Heparin, not on ASA Resp: Acute respiratory failure Postop left posterior lateral muscle-sparing thoracotomy with JAYLENE lobectomy and mediastinal lymph node dissection secondary to squamous cell carcinoma the lung by Dr. Holman COPD? 4 pack years tobacco use quit 40 years ago Pneumonia Tiny right apical pneumothorax Currently on PSV 8/5-30%. Daily spontaneous breathing trials but mental status will not permit extubation, may attempt trial extubation tomorrow and transition to comfort if he does not tolerate Ventilator bundle. Albuterol aerosols every 4 hours with albuterol aerosols every 2 hours as needed dyspnea Chest tube removed 03/01 by CTS indicates patient will not want trach and PEG, but family wants to wait till 03/11/18 to see whether the patient improves-otherwise plan transition to comfort measures GI: Gastroesophageal reflux disease on omeprazole 20 mg daily at home History of EGD with dilatation? Constipation Hypoalbuminemia Tube feeds with Jevity 1.5 at goal rate Lansoprazole for GI prophylaxis Docusate sodium 100 mg twice daily, senna liquid 8.8 mg twice daily, polyethylene glycol 17 g twice daily and lactulose 30 cc 4 times daily C. difficile negative Endo: Sliding scale insulin with Accu-Cheks every 6 hours/low regimen of NovoLog to maintain euglycemia Renal: Creatinine currently within normal limits Monitor urine output, Accurate I's and O's Rodriguez catheter will be placed for accurate I's and O's in a critically ill patient Heme: Leukocytosis Normocytic anemia Monitor CBC daily. Follow trends ID: Healthcare associated pneumonia (Klebsiella/Staph aureus) Continue Levaquin 750 mg IV every 24 hours. Complete 7 days Follow-up on blood urine and sputum cultures-Klebsiella staph aureus Monitor for signs and symptomatology infection C. difficile negative Access -Utilize peripheral IV. Central line if indicated Prophylaxis -GI -lansoprazole -DVT -SCDs/pharmacological prophylaxis provided by heparin drip Family wishes to withdraw care. Extubation. - Additional Data Confirmation of as documented by pronouncing clinician: no pulse, no respirations, no heart sounds, pupils fixed and dilated Family: at bedside Additional persons at bedside: other Attending/PCP notified?: Yes Attending physician: eWro Montiel MD Was code activated?: No Autopsy requested?: No death claim examiner notified?: Yes Organ bank notified?: Yes Advance directives: Unknown Hospice patient?: No
[2018-03-11] MEDS ORDERED: Morphine Inj 4 MG/ML Vial IV.PUSH SCH (16:00)
== END 2018-03-11 15:26 | disposition expired ==
LOC: N03 05:49
PROVIDERS: ADMIT Internal Medicine Critical Care Medicine; ATTEND Internal Medicine Critical Care Medicine